=== PATIENT | female | born 1940 | race Caucasian/White ===

== ENCOUNTER → 2020-02-06 09:05 | Outpatient (BNVA) | payer MEDICARE, OTHER, SELFPAY | PROVIDERS: PCP Internal Medicine; Referring Provider Internal Medicine; Visit Provider Internal Medicine Gastroenterology | DX: K21.9 Gastro-esophageal reflux disease without esophagitis (principal); Z79.899 Other long term (current) drug therapy; Z87.19 Personal history of other diseases of the digestive system; Z80.0 Family history of malignant neoplasm of digestive organs | CPT/HCPCS: Q3014 ==

== ENCOUNTER 2021-01-21 | Outpatient (REF) | payer MEDICARE, OTHER, SELFPAY ==
[2021-01-25 07:43] LABS: FIT1 NEGATIVE (NEGATIVE)
[2021-01-25 07:44] LABS: FIT Int Ctl YES; FIT2 NEGATIVE (NEGATIVE)
== END 2021-01-21 00:01 | disposition home or self-care (01) ==
LOC: HO.LNP
PROVIDERS: Visit Provider Internal Medicine Gastroenterology
DX: Z12.11 Encounter for screening for malignant neoplasm of colon (principal)
CPT/HCPCS: 82274

== ENCOUNTER 2021-01-22 07:59 | Outpatient (REF) | payer MEDICARE, OTHER, SELFPAY ==
[2021-01-22 10:07] LABS: MANUAL DIFF FLAG NO
[2021-01-22 10:11] LABS: Basophils Absolute Auto 0.1 X10*3/uL (0.0-0.2); Basophils Percent Auto 1.3 % (0-2); Eosinophils Absolute Auto 0.2 X10*3/uL (0.0-0.4); Eosinophils Percent Auto 3.2 % (0-4); Hematocrit 38.4 % (37.0-47.0); Hemoglobin 12.5 g/dl (12.0-16.0); Imm Gran Abs Auto 0.01 X10*3/uL (0.00-0.03); Imm Gran Pct Auto 0.2 % (0.0-0.4); Lymphocytes Absolute Auto 1.4 X10*3/uL (1.2-4.9); Lymphocytes Percent Auto 26.5 % (20-40); Mean Corpuscular HGB Conc 32.6 g/dl (31.0-35.0); Mean Corpuscular Hemoglobin 29.6 pg (27.0-33.0); Monocytes Absolute Auto 0.6 X10*3/uL (0.1-1.2); Monocytes Percent Auto 11.3 % (2-11); Neutrophils Absolute Auto 3.04 x10*3/uL (2.0-8.3); Neutrophils Percent Auto 57.5 % (45-73); Platelet Count 336 X10*3/uL (160-400); Red Blood Count 4.22 X10*6/uL (4.20-5.50); Red Cell Distribution Width 13.9 % (11.0-16.0); White Blood Count 5.3 X10*3/uL (4.8-10.8)
[2021-01-22 10:33] LABS: Alanine Aminotransferase 19 U/L (0-31); Albumin Level 4.3 g/dL (3.5-5.0); Alkaline Phosphatase 59 U/L (39-117); Anion Gap 12 (12-20); Aspartate Amino Transferase 19 U/L (5-31); Bilirubin Total 0.6 mg/dL (0.0-1.0); Blood Urea Nitrogen 12 mg/dL (9-16); Calcium 9.1 mg/dL (8.4-10.2); Carbon Dioxide 28 mmol/L (22-29); Chloride 105 mmol/L (96-108); Cholesterol 213 mg/dL; Estimated Glomerular Filt Rate > 60; Glucose Fasting 87 mg/dL (60-99); HDL Cholesterol 80 mg/dL; LDL Cholesterol Calculated 117 mg/dl; Potassium 4.6 mmol/L (3.3-5.1); Sodium 140 mmol/L (135-145); Total Protein 6.5 g/dL (6.5-8.0); Triglycerides 82 mg/dL
[2021-01-22 10:59] LABS: Free T4 (Free Thyroxine) 1.01 ng/dL (0.71-1.85)
== END 2021-01-22 08:00 | disposition home or self-care (01) ==
LOC: HO.10HDL 07:59
PROVIDERS: Visit Provider Internal Medicine
DX: I10 Essential (primary) hypertension (principal); E78.00 Pure hypercholesterolemia, unspecified; E03.9 Hypothyroidism, unspecified
CPT/HCPCS: 36415; 80053; 80061; 84439; 84443; 85025

== ENCOUNTER → 2021-04-11 12:18 | Outpatient (BNVA) | payer MEDICARE, OTHER, SELFPAY | PROVIDERS: PCP Internal Medicine; Referring Provider Internal Medicine; Visit Provider Physician Assistant | DX: K21.9 Gastro-esophageal reflux disease without esophagitis (principal); Z80.7 Family history of other malignant neoplasms of lymphoid, hematopoietic and related tissues | CPT/HCPCS: 99212 ==

== ENCOUNTER 2022-01-25 08:11 | Outpatient (REF) | payer MEDICARE, OTHER, SELFPAY ==
--- NOTE | ~2022-01-25 | XR_ITS ---
EXAMINATION: XR ANKLE, RIGHT CLINICAL INFORMATION: Plate COMPARISON: None TECHNIQUE: AP, lateral, and mortise views of the right ankle. FINDINGS: No acute fracture or dislocation. There is old trauma to the distal fibula and plate and screws in the mid and distal fibular shaft. Orthopedic hardware appears intact. No evidence of loosening. 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 The bones are osteopenic. There is mild arthritis at the tibiotalar joint. The ankle mortise is otherwise normal. There are small calcaneal XR/XR ankle RT min 3V IMPRESSION: Old trauma to the distal fibula with plate and screws. 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 Osteopenia.
[2022-01-25 08:50] LABS: MANUAL DIFF FLAG NO
[2022-01-25 09:35] LABS: Basophils Absolute Auto 0.1 X10*3/uL (0.0-0.2); Basophils Percent Auto 1.5 % (0-2); Eosinophils Absolute Auto 0.2 X10*3/uL (0.0-0.4); Eosinophils Percent Auto 3.8 % (0-4); Hematocrit 38.7 % (37.0-47.0); Hemoglobin 12.5 g/dl (12.0-16.0); Imm Gran Abs Auto 0.02 X10*3/uL (0.00-0.03); Imm Gran Pct Auto 0.4 % (0.0-0.4); Lymphocytes Absolute Auto 1.2 X10*3/uL (1.2-4.9); Lymphocytes Percent Auto 25.8 % (20-40); Mean Corpuscular HGB Conc 32.3 g/dl (31.0-35.0); Mean Corpuscular Hemoglobin 29.5 pg (27.0-33.0); Mean Corpuscular Volume 91.3 fL (80.0-98.0); Mean Platelet Volume 9.6 fL (9.4-12.3); Monocytes Absolute Auto 0.5 X10*3/uL (0.1-1.2); Monocytes Percent Auto 11.3 % (2-11); Neutrophils Absolute Auto 2.7 x10*3/uL (2.0-8.3); Neutrophils Percent Auto 57.2 % (45-73); Platelet Count 359 X10*3/uL (160-400); Red Blood Count 4.24 X10*6/uL (4.20-5.50); Red Cell Distribution Width 13.5 % (11.0-16.0); White Blood Count 4.8 X10*3/uL (4.8-10.8)
[2022-01-25 09:50] LABS: Alanine Aminotransferase 16 U/L (0-31); Albumin Level 4.4 g/dL (3.5-5.0); Alkaline Phosphatase 65 U/L (39-117); Anion Gap 16 (12-20); Aspartate Amino Transferase 16 U/L (5-31); Bilirubin Total 0.6 mg/dL (0.0-1.0); Blood Urea Nitrogen 13 mg/dL (9-16); Calcium 9.7 mg/dL (8.4-10.2); Carbon Dioxide 25 mmol/L (22-29); Chloride 103 mmol/L (96-108); Cholesterol 229 mg/dL; Estimated Glomerular Filt Rate > 60; Glucose Fasting 90 mg/dL (60-99); HDL Cholesterol 87 mg/dL; LDL Cholesterol Calculated 121 mg/dl; Potassium 4.9 mmol/L (3.3-5.1); Sodium 139 mmol/L (135-145); Total Protein 6.9 g/dL (6.5-8.0); Triglycerides 108 mg/dL
[2022-01-25 09:59] LABS: Free T4 (Free Thyroxine) 1.04 ng/dL (0.71-1.85); Thyroid Stimulating Hormone 2.29 uIU/mL (0.32-4.0); Vitamin D 25-OH Total 88.8 ng/mL (>30)
== END 2022-01-25 08:12 | disposition home or self-care (01) ==
LOC: HO.LAB 08:11
PROVIDERS: PCP Internal Medicine; Visit Provider Internal Medicine
DX: M25.571 Pain in right ankle and joints of right foot (principal); I10 Essential (primary) hypertension; K21.9 Gastro-esophageal reflux disease without esophagitis; E78.00 Pure hypercholesterolemia, unspecified; E03.9 Hypothyroidism, unspecified
CPT/HCPCS: 36415; 73610; 80053; 80061; 82306; 84439; 84443; 85025

== ENCOUNTER 2022-04-21 10:48 | Outpatient (REF) | payer MEDICARE, OTHER, SELFPAY ==
--- NOTE | 2022-04-29 08:04 | MHC.AU.MED ---
Medical Clearance for Hearing Instrumentation Date: 04/29/22 Patient Name: Jeny León Date of : 1940 Primary Care Provider: Referring Provider: Apolinar Mcelroy MD We have seen your patient on 04/21/22 and have determined that they are a candidate for amplification (See accompanying report). Specifically, they would benefit from: Hearing aid use in both ears There is a statute that addresses Medical Evaluation Requirements prior to fitting a patient with a hearing aid. According to [place] statute 265 CMR:6.03(1), (a) General. Except as provided in 265 CMR 6.03(1)(b), a dermatology nurse practitioner shall not sell a hearing aid unless the prospective user has presented to the dermatology nurse practitioner a written statement signed by a licensed physician that states that the patient's hearing loss has been medically evaluated and the patient may be considered a candidate for a hearing aid. The medical evaluation must have taken place within the preceding six months. Please note: Due to the [place] Statute referenced above, we cannot accept a signature other than that of a licensed physician. CASTING SORTER and PA signatures cannot be accepted. I am in agreement with the above recommendation. There is no medical contraindication for hearing instrumentation. Physician Signature Date Physician Name (Printed)
== END 2022-04-21 10:49 | disposition home or self-care (01) ==
LOC: HO.SH 10:48
PROVIDERS: Visit Provider Internal Medicine
DX: Z01.118 Encounter for examination of ears and hearing with other abnormal findings (principal); H90.3 Sensorineural hearing loss, bilateral
CPT/HCPCS: 92557; 92567; 92700

== ENCOUNTER 2022-06-12 10:31 | Outpatient (REF) | payer MEDICARE, OTHER, SELFPAY ==
--- NOTE | 2022-06-13 07:48 | MHC.AU.HA1 ---
Hearing Aid Evaluation Date of Visit: 06/12/22 Historical Information: Description of Hearing: Normal hearing thresholds 250-1000 Hz dropping to a moderately-severe sensorineural hearing loss bilaterally. Current personal amplification information, if applicable: None Summary: Jeny has been experiencing increased difficulties understanding speech, particularly when in group settings or when background noise is present. Bilateral hearing aids are recommended to better facilitate communication. Demonstrated both Phonak Audeo L 90 and 70 levels in office today. Jeny would like to trial the level 90 aids. She is concerned about moisture as during the summer she is active and swims. Will order the [facility] Hearing Aid Prescription: Based on the individual?s shared listening needs, communication environments, dexterity, desire for connectivity, and personal preferences, the following prescription for amplification has been made: Right ear: Make, Model, Color: Phonak Audeo L 90-RL Silver Almodovar Battery Size: Rechargeable Livestock Haulier/Slim Tube: #1 M Type of Earmold/Dome/CShell/SlimTip: Open Left ear:Left ear prescription to be same as Right Hearing Aid above: Make, Model, Color: Phonak Audeo L 90-RL Silver Almodovar Battery Size: Rechargeable Livestock Haulier/Slim Tube: #1 M Type of Earmold/Dome/CShell/SlimTip: Open Plan of Care: Patient wishes to purchase hearing aids as prescribed Action Taken/Action Needed:Hearing Instrument Fitting to be scheduled when materials arrive Comments: Medical clearance is in chart. Recommended patient contact insurance to see if she has any benefit which may be reimbursed. Primary Diagnosis: H90.3 Bilateral Sensorineural Hearing Loss Signature:Provider: Catherine Tavares, [facility]
== END 2022-06-12 10:32 | disposition home or self-care (01) ==
LOC: HO.HAP 10:31
PROVIDERS: Visit Provider Internal Medicine
DX: Z46.1 Encounter for fitting and adjustment of hearing aid (principal); H90.3 Sensorineural hearing loss, bilateral
CPT/HCPCS: 92590

== ENCOUNTER 2022-07-11 09:54 | Outpatient (REF) | payer MEDICARE, OTHER, SELFPAY ==
--- NOTE | 2022-07-11 10:03 | MHC.AU.NPS ---
PURCHASE AND SALE AGREEMENT Date of Fitting: End of Adjustment Period:30 days from fitting date 21 Dealer: [facility] 3 YR Service Agreement? Opt In: expires? Following the expiration of [facility]?s service agreement, charges for items and services are billed at the usual and customary rate. Payment is due at the time of service. ? (Initialed) Opt out: I understand by opting out of the service agreement I will be charged for any and all hearing aid related services obtained after the adjustment period.? (Initialed) Total Due at Fitting $? Includes any opted in hearing aid service agreement, earmolds and accessories Right Ear: Left Ear: Make, Model, Serial Number and Color: Phonak Audeo L 90-RL Silver Almodovar Make, Model, Serial Number and Color: Phonak Audeo L 90-RL Silver Almodovar Popcorn Attendant/Slim Tube: #1 M Popcorn Attendant/Slim Tube: #1 M Earmold/Dome/CShell/SlimTip: Open Earmold/Dome/CShell/SlimTip: Open Type of Wax Guard: Type of Wax Guard: Battery Size: Rechargeable Battery Size: Rechargeable Bevel Mill Operator Repair Warranty: Bevel Mill Operator Repair Warranty: Bevel Mill Operator Loss and Damage Warranty: Bevel Mill Operator Loss and Damage Warranty: [facility] Service Plan: [facility] Service Plan: Accessories/Assistive Technology: The following items that may be supplied at initial fitting are not included in any warranty or service package: ? Hearing aid batteries ($5), Wax Guard packages ($10) Per [place] regulations, during the 30-day adjustment period, the child development instructor shall be able to cancel the purchase with a limited money back guarantee.? When a child development instructor returns the hearing aid within the adjustment period, the seller shall be entitled to retain the charges for earmolds, services provided to fit the hearing aid; and any repair, remake or adjustment performed that is not contained within any other warranty of sale or service, not to exceed 20% of the purchase mcconnell. ? [facility]?s non-refundable portion of the process, not including earmolds, is the previously paid hearing aid evaluation and selection fee of $350. ? Hearing aids that are lost or damaged beyond repair cannot be returned for credit, and the child development instructor is liable for the full purchase mcconnell. My signature below acknowledges that I have read and understand this hearing aid contract and have received the goods and services out lined above. ?Date? Home Address: ? This hearing aid will not restore normal hearing nor will it prevent further hearing loss. The sale of a hearing aid is restricted to those individuals who have obtained a medical evaluation from a licensed physician or manager mental health. A fully informed adult whose zoroastrian or personal beliefs preclude consultation with a physician may waive the requirement of a medical evaluation. The exercise of such a waiver is not in your best health interest and its use is strongly discouraged. It is also required that a person under the age of eighteen years obtain an evaluation by an journalism intern in addition to the medical evaluation before a hearing aid can be sold to such person. Redd Davis,Title XV,Chapter 93:74 ?Base cost of hearing aid(s) includes the following one-time services during adjustment period: ? Pre-fitting programming ? Electroacoustic check ? Conformity Evaluation ? Hearing aid dispensing ? One adjustment period visit after fitting ? Instruction on use of devices ? Custom modifications to settings, fit ? As needed: Starter battery packs, wax guards, cleaning tools, case ? Pairing devices as needed
== END 2022-07-11 09:55 | disposition home or self-care (01) ==
LOC: HO.HAP 09:54
PROVIDERS: Visit Provider Internal Medicine
DX: Z46.1 Encounter for fitting and adjustment of hearing aid (principal); H90.3 Sensorineural hearing loss, bilateral
CPT/HCPCS: V5262; V5299

== ENCOUNTER 2022-08-05 09:24 | Outpatient (REF) | payer SELFPAY | END 2022-08-05 09:25 | disposition home or self-care (01) | LOC: HO.HAP 09:24 | PROVIDERS: Visit Provider Internal Medicine | DX: Z13.89 Encounter for screening for other disorder (principal) ==

== ENCOUNTER 2022-08-26 09:56 | Outpatient (REF) | payer SELFPAY | END 2022-08-26 09:57 | disposition home or self-care (01) | LOC: HO.HAP 09:56 | PROVIDERS: Visit Provider Internal Medicine | DX: Z13.89 Encounter for screening for other disorder (principal) ==

== ENCOUNTER 2022-08-26 11:43 | Outpatient (REF) | payer MEDICARE, OTHER, SELFPAY ==
--- NOTE | ~2022-08-26 | XR_ITS ---
EXAMINATION: XR RIBS, RIGHT CLINICAL INFORMATION: Status post right side rib pain Right-sided rib pain after fall COMPARISON: Chest 05/02/2009 TECHNIQUE: 3 views of the right ribs were obtained. FINDINGS: Mild opacity at the right lung base most suggestive of atelectasis, less likely pneumonia. No pneumothorax or pleural effusion. Pleural effusion. The cardiomediastinal silhouette and pulmonary vasculature are normal. There is a mildly displaced fracture of the right seventh lateral rib. XR/XR ribs RT min 3V w CXR1V IMPRESSION: Mildly displaced fracture of the right seventh lateral rib.
== END 2022-08-26 11:44 | disposition home or self-care (01) ==
LOC: HO.XRAY 11:43
PROVIDERS: PCP Internal Medicine; Visit Provider Internal Medicine
DX: R07.81 Pleurodynia (principal)
CPT/HCPCS: 71101

== ENCOUNTER 2022-09-15 14:55 | Outpatient (REF) | payer MEDICARE, OTHER, SELFPAY ==
--- NOTE | ~2022-09-15 | XR_ITS ---
EXAMINATION: XR THORACIC SPINE XR LUMBAR SPINE XR SACRUM AND COCCYX CLINICAL INFORMATION: Neck and back pain, fracture of right seventh rib after fall. COMPARISON: Chest 05/02/2009, ribs 08/26/2022. TECHNIQUE: 3 views of the thoracic spine, 4 views of the lumbar spine, 3 views of the sacrum and coccyx. FINDINGS: THORACIC SPINE: The bones are diffusely demineralized. Mild degenerative changes in the thoracic spine. Mild rightward curvature of the mid to upper thoracic spine. Redemonstration of mild superior endplate concavity of a mid to upper thoracic vertebral body, present on 05/02/2009. Degenerative changes on very limited imaging of the cervical spine. LUMBAR SPINE: The bones are diffusely demineralized. Mild rightward curvature of the thoracolumbar junction. Facet arthritis in the mid to lower lumbar spine. Advanced multilevel degenerative changes in the lumbar spine with multilevel loss of disc space height, subchondral sclerosis and vacuum phenomenon most notable at L4-L5, and L5-S1. Atherosclerotic aortoiliac calcifications. SACRUM/COCCYX: The bones are diffusely demineralized. Multiple dense, amorphous calcifications in the central pelvis, possibly related to vascularity, fibroids and/or nodes or other etiology. Moderate degenerative changes bilateral sacroiliac joints. Visualization limited due to overlying bowel. XR/XR sacrum coccyx min 2V IMPRESSION: 1. Mild degenerative changes in the thoracic spine. 2. Severe multilevel degenerative changes in the lumbar spine most notable at L4-L5 and L5-S1. 3. Moderate degenerative changes bilateral sacroiliac joints. 4. Multiple dense, amorphous calcifications in the central pelvis, possibly related to vascularity, fibroids and/or nodes or other etiology. Additional imaging with CT scan or MRI should be considered for better visualization as these modalities are much more sensitive for detection of fracture or other underlying pathology. Images were presented today 10/01/2022 at 12:30 PM for interpretation.
--- NOTE | ~2022-09-15 | XR_ITS ---
EXAMINATION: XR THORACIC SPINE XR LUMBAR SPINE XR SACRUM AND COCCYX CLINICAL INFORMATION: Neck and back pain, fracture of right seventh rib after fall. COMPARISON: Chest 05/02/2009, ribs 08/26/2022. TECHNIQUE: 3 views of the thoracic spine, 4 views of the lumbar spine, 3 views of the sacrum and coccyx. FINDINGS: THORACIC SPINE: The bones are diffusely demineralized. Mild degenerative changes in the thoracic spine. Mild rightward curvature of the mid to upper thoracic spine. Redemonstration of mild superior endplate concavity of a mid to upper thoracic vertebral body, present on 05/02/2009. Degenerative changes on very limited imaging of the cervical spine. LUMBAR SPINE: The bones are diffusely demineralized. Mild rightward curvature of the thoracolumbar junction. Facet arthritis in the mid to lower lumbar spine. Advanced multilevel degenerative changes in the lumbar spine with multilevel loss of disc space height, subchondral sclerosis and vacuum phenomenon most notable at L4-L5, and L5-S1. Atherosclerotic aortoiliac calcifications. SACRUM/COCCYX: The bones are diffusely demineralized. Multiple dense, amorphous calcifications in the central pelvis, possibly related to vascularity, fibroids and/or nodes or other etiology. Moderate degenerative changes bilateral sacroiliac joints. Visualization limited due to overlying bowel. XR/XR thoracic spine 3V IMPRESSION: 1. Mild degenerative changes in the thoracic spine. 2. Severe multilevel degenerative changes in the lumbar spine most notable at L4-L5 and L5-S1. 3. Moderate degenerative changes bilateral sacroiliac joints. 4. Multiple dense, amorphous calcifications in the central pelvis, possibly related to vascularity, fibroids and/or nodes or other etiology. Additional imaging with CT scan or MRI should be considered for better visualization as these modalities are much more sensitive for detection of fracture or other underlying pathology. Images were presented today 10/01/2022 at 12:30 PM for interpretation.
--- NOTE | ~2022-09-15 | XR_ITS ---
EXAMINATION: XR THORACIC SPINE XR LUMBAR SPINE XR SACRUM AND COCCYX CLINICAL INFORMATION: Neck and back pain, fracture of right seventh rib after fall. COMPARISON: Chest 05/02/2009, ribs 08/26/2022. TECHNIQUE: 3 views of the thoracic spine, 4 views of the lumbar spine, 3 views of the sacrum and coccyx. FINDINGS: THORACIC SPINE: The bones are diffusely demineralized. Mild degenerative changes in the thoracic spine. Mild rightward curvature of the mid to upper thoracic spine. Redemonstration of mild superior endplate concavity of a mid to upper thoracic vertebral body, present on 05/02/2009. Degenerative changes on very limited imaging of the cervical spine. LUMBAR SPINE: The bones are diffusely demineralized. Mild rightward curvature of the thoracolumbar junction. Facet arthritis in the mid to lower lumbar spine. Advanced multilevel degenerative changes in the lumbar spine with multilevel loss of disc space height, subchondral sclerosis and vacuum phenomenon most notable at L4-L5, and L5-S1. Atherosclerotic aortoiliac calcifications. SACRUM/COCCYX: The bones are diffusely demineralized. Multiple dense, amorphous calcifications in the central pelvis, possibly related to vascularity, fibroids and/or nodes or other etiology. Moderate degenerative changes bilateral sacroiliac joints. Visualization limited due to overlying bowel. XR/XR lumbar spine 2-3V IMPRESSION: 1. Mild degenerative changes in the thoracic spine. 2. Severe multilevel degenerative changes in the lumbar spine most notable at L4-L5 and L5-S1. 3. Moderate degenerative changes bilateral sacroiliac joints. 4. Multiple dense, amorphous calcifications in the central pelvis, possibly related to vascularity, fibroids and/or nodes or other etiology. Additional imaging with CT scan or MRI should be considered for better visualization as these modalities are much more sensitive for detection of fracture or other underlying pathology. Images were presented today 10/01/2022 at 12:30 PM for interpretation.
== END 2022-09-15 14:56 | disposition home or self-care (01) ==
LOC: HO.XRAY 14:55
PROVIDERS: PCP Internal Medicine; Visit Provider Nurse Practitioner Family
DX: M47.816 Spondylosis without myelopathy or radiculopathy, lumbar region (principal); M53.3 Sacrococcygeal disorders, not elsewhere classified; S22.31XA Fracture of one rib, right side, initial encounter for closed fracture; X58.XXXA Exposure to other specified factors, initial encounter; Y93.9 Activity, unspecified; Y92.9 Unspecified place or not applicable; Y99.9 Unspecified external cause status; Z91.81 History of falling
CPT/HCPCS: 72072; 72100; 72220; 99202

== ENCOUNTER 2022-09-18 09:08 | Outpatient (REF) | payer SELFPAY ==
--- NOTE | 2022-09-18 10:46 | MHC.AU.HA3 ---
Hearing Instrument Follow-Up- Binaural Date of Visit: 09/18/22 Right Ear: Tee Model, Color, Serial Number: Vish Mosquera 90-RL Alonzo Almodovar #[id number] Carpenter And Joiner Repair Warranty: 09/09/2025 Carpenter And Joiner Loss and Damage Warranty: 09/09/2025 [facility] Service Plan: NONE Battery Size: Rechargeable Medical Delivery Driver/Slim Tube: #1 M Earmold/Dome/CShell/SlimTip:Small open dome Type of Wax Guard: CeruShield Dispensed By: [facility] Date of Fittin07/11/2022 Left Ear: Tee Model, Color, Serial Number: Vish Mosquera 90-RL Alonzo Almodovar #[id number] Carpenter And Joiner Repair Warranty: 09/09/2025 Carpenter And Joiner Loss and Damage Warranty: 09/09/2025 [facility] Service Plan: NONE Battery Size: Rechargeable Medical Delivery Driver/Slim Tube: #1 M Earmold/Dome/CShell/SlimTip: Small Open Dome Type of Wax Guard: CeruShield Dispensed By: [facility] Date of Fittin07/11/2022 Follow-Up Summary: Jeny reported that recently the sound quality has been too harsh and she has been on edge when wearing the hearing aids. She continually needs to decrease the volume to be more comfortable. Auto acclimatization at 99% (started at 80% in June 2022 at initial fit) which may account for the noticeable change in sound quality. Decreased gain level to 85% with auto increase to 90% in 14 days. Jeny noted significant improvement in sound quality in office. Discussed the trade off between comfort and audibility as Jeny reported minimal perceived benefit from the hearing aids. However, she did report that her daughter notices a difference in her understanding and responsiveness when she is wearing the hearing aids. R/S follow up on 10/01/22. Jeny knows she needs to make a decision regarding confirming the purchase of the hearing aids or RFC at that time. Recommendations: An additional follow-up was scheduled to monitor progress. Diagnosis Code(s): Primary Diagnosis: H90.3 Bilateral Sensorineural Hearing Loss Signature: Provider: Catherine Soliz, [facility]
== END 2022-09-18 09:09 | disposition home or self-care (01) ==
LOC: HO.HAP 09:08
PROVIDERS: Visit Provider Internal Medicine
DX: Z13.89 Encounter for screening for other disorder (principal)

== ENCOUNTER 2022-09-24 09:40 | Outpatient (REF) | payer MEDICARE, OTHER, SELFPAY ==
--- NOTE | ~2022-09-24 | MM_ITS ---
EXAMINATION: BONE DENSITOMETRY CLINICAL INDICATION: Asymptomatic menopausal state. COMPARISON: Previous BD dated 10/06/2017 and baseline BD dated 04/10/2005. TECHNIQUE: Using a Bi02 Medical DXA System (software version: 13.1) manufactured by [employer], dual-energy x-ray absorptiometry was performed of the lumbar spine and left hip. The images are of good technical quality. Summary results are attached. FINDINGS: LEFT FEMUR, NECK: Current: BMD 0.705 g/cm2, Z-score -0.3, T-score -2.4, osteopenia. Prior: BMD 0.716 g/cm2. Baseline: BMD 0.726 g/cm2. LEFT FEMUR, TOTAL: Current: BMD 0.789 g/cm2, Z-score 0.2, T-score -1.7, osteopenia, 0.8% decrease from previous, 3.2% decrease from baseline (<5% change is not significant). Prior: BMD 0.795 g/cm2. Baseline: BMD 0.815 g/cm2. AP SPINE L1-L4: Current: BMD 1.051 g/cm2, Z-score 0.7, T-score -1.1, osteopenia, 1.6% increase from previous, 12.3% increase from baseline (<5% change is not significant). Prior: BMD 1.034 g/cm2. Baseline: BMD 0.936 g/cm2. IDENTIFIED RISK FACTORS: History of fracture (adult), low calcium intake, menopause. HISTORY OF FRACTURE: Other. MEDICATIONS: Vitamin D. MM/XR DEXA axial skeleton IMPRESSION: 1. DIAGNOSIS: Osteopenia based on the lowest T-score value of -2.4 in the femoral neck applying World Health Organization criteria. 2. 10-YEAR FRACTURE RISK PREDICTION, FRAX: Major osteoporotic fracture (clinical spine, forearm, hip or shoulder) 25.7%. Hip fracture 8.1%. 3. Treatment Recommendations: NOF guidelines recommend consideration for treatment in postmenopausal women and men age 50 and older presenting with the following: -A hip or vertebral (clinical or morphometric) fracture. -T-score less than or equal to -2.5 at the femoral neck or spine after appropriate evaluation to exclude secondary causes. -Low bone mass at the hip or spine and a 10-year fracture probability by FRAX of greater than or equal to 3% for hip fracture or greater than or equal to 20% for major osteoporotic fracture based on the [place] adapted WHO algorithm. 4. Other Recommendations: All treatment decisions require clinical judgment and consideration of individual patient factors, including patient preferences, comorbidities, previous drug use, risk factors not captured in the FRAX model (e.g. frailty, falls, vitamin D deficiency, increased bone turnover, interval significant decline in bone density) and possible under or overestimation of fracture risk by FRAX. Additional medical evaluation for secondary cause of low bone mineral density may be appropriate. FUTURE SCAN RECOMMENDATION: People with diagnosed cases of osteoporosis or at high risk for fracture should have regular bone mineral density tests. For patients eligible for Medicare, routine testing is allowed once every 2 years. The testing frequency can be increased to one year for patients who have rapidly progressing disease, those who are receiving or discontinuing medical therapy to restore bone mass, or have additional risk factors.
== END 2022-09-24 09:41 | disposition home or self-care (01) ==
LOC: HO.MAMMO 09:40
PROVIDERS: Visit Provider Internal Medicine
DX: Z13.820 Encounter for screening for osteoporosis (principal); Z78.0 Asymptomatic menopausal state
CPT/HCPCS: 77080

== ENCOUNTER 2022-10-01 12:17 | Outpatient (REF) | payer SELFPAY ==
--- NOTE | 2022-10-01 13:37 | MHC.AU.HA3 ---
Hearing Instrument Follow-Up- Binaural Date of Visit: 10/01/22 Right Ear: Model Tee, Color, Serial Number: Vish Mosquera 90-RL Alonzo Almodovar #[id number] Electronic Warfare Specialist Repair Warranty: 09/09/2025 Electronic Warfare Specialist Loss and Damage Warranty: 09/09/2025 [facility] Service Plan: OPTED OUT Battery Size: Rechargeable Level Vial Setter/Slim Tube: #1 M Earmold/Dome/CShell/SlimTip:Small open dome Type of Wax Guard: CeruShield Dispensed By: [facility] Date of Fittin07/11/2022 Left Ear: Model Tee, Color, Serial Number: Vish Mosquera 90-RL Alonzo Almodovar #[id number] Electronic Warfare Specialist Repair Warranty: 09/09/2025 Electronic Warfare Specialist Loss and Damage Warranty: 09/09/2025 [facility] Service Plan: OPTED OUT Battery Size: Rechargeable Level Vial Setter/Slim Tube: #1 M Earmold/Dome/CShell/SlimTip: Small Open Dome Type of Wax Guard: CeruShield Dispensed By: [facility] Date of Fittin07/11/2022 Follow-Up Summary: Jeny reported that the past 2-3 days the harshness of sound quality returned. At her previous appointment, gain level set to 85% with auto increase to 90% in 14 days. Gain level today was 89%. Decreased back down to 80% at Jeny's request with significant improvement noted in sound quality. Did not turn auto acclimatization back on. Will keep programming at 80% gain level until Jeny feels as though she is ready for an increase in amplification. Again discussed tradeoff between audibility and comfort. Performed aided (at 80% gain level) vs. unaided soundfield speech testing as Jeny was still unsure of perceived benefit. Speech testing (recorded NU-6, list 2) at 40 dB HL: Aided - 92% vs. Unaided - 76%. Pattern of errors for unaided included high frequency speech sounds (e.g., hut for hush, lid for live, sapp for rot, etc). Jeny even noticed an ease of understanding with the hearing aids compared to without the hearing aids during soundfield testing. Jeny confirmed the purchase of the hearing aids marking the end of the trial period. Recommendations: Hearing instrument follow-up or maintenance as needed. Please contact our clinic with any questions or concerns. Diagnosis Code(s): Primary Diagnosis: H90.3 Bilateral Sensorineural Hearing Loss Signature: Provider: Catherine Soliz, [facility]
== END 2022-10-01 12:18 | disposition home or self-care (01) ==
LOC: HO.HAP 12:17
PROVIDERS: Visit Provider Internal Medicine
DX: Z13.89 Encounter for screening for other disorder (principal)

== ENCOUNTER 2022-10-20 09:25 | Outpatient (AMB) | payer MEDICARE, OTHER, SELFPAY ==
[2022-10-20 09:28] VITALS: BP 183/86; PULSE 73; O2SAT 96; BMI 28.4
--- NOTE | 2022-10-20 09:28 | MHC.OFFVIS ---
Intake Vital Signs 10/20/22 09:28 Height 5 ft 1 in Weight 150 lb 4 oz BMI 28.4 BP 183/86 H Blood Pressure Location Rt brachial Position Sitting Pulse 73 Pulse Source Pulse Oximeter Pulse Oximetry (%) 96 Oxygen Delivery Method Room Air Intake Visit Reasons: xray results Allergies No Known Allergies [No Known Allergies*] Allergy (Unverified 10/20/22 09:31) HPI HPI Comments History of Present Illness Details Patient presents today to review recent xray results and follow up. Currently reports no pain in previously mentioned pain generators, except occasional bilateral knee pain with walking or climbing stairs. Denies any recent trauma, injury or falls. Patient denies any recent cough, cold, infection, fever or other significant changes in medical history since last office visit. Patient denies any bladder or bowel incontinence or saddle anesthesia. Patient also reports undergoing bone density scan recently and started taking vitamin D with calcium per her PCP. PRIOR: Patient is a pleasant 81 years old female presents today with back and right rib pain due to a fall 3 weeks ago. Patient reports she fell on stairs while putting her shoes on and fell backwards on her coccyx which also is tender and her back hit the wall and felt immediate stabbing pain in her mid back. Patient reports initially her right sided mid back pain was radiating to her abdomen. She describes her pain as intermittent dull, sore, hurting, aching and heavy. Pain increases with movements and lying down and relieves with sitting up. She was prescribed tramadol by her PCP and states this has been helpful for her. Her pain level is 2/10 at this time but by nighttime can increase to 5-7/10. Rib x-ray showed a mildly displaced fracture of the right seventh lateral rib. Patient reports she continues to stay active despite the pain, including pain in her mid to lower back and coccyx, and cannot wait to return to play golf. No acute distress or discomfort noted during prolonged sitting on chair or exam table today. Denies any fever, weight loss, shortness of breath, chest pain, swelling, rash, dyspnea, gait disturbance, weakness, numbness or tingling, bladder or bowel incontinence or saddle anesthesia. [facility] Medical History (Updated 10/20/22 @ 13:15 by SILVANO Engle) Family hx of colon cancer requiring screening colonoscopy GERD (gastroesophageal reflux disease) Surgical History History of esophagogastroduodenoscopy (EGD) Hx of colonoscopy Family History Father No problems noted. Mother No problems noted. Sister No problems noted. Social History Household Members: None Housing: House Alcohol intake: current Alcohol intake frequency: 0-2 drinks per day Alcohol type: beer and wine Patient Tobacco Use Status: Former Tobacco user Current occupational status: retired Review of Systems Const All systems reviewed & are unremarkable except as noted in HPI and below Physical Exam Vital Signs: Last Vital Signs Pulse 73 10/20/22 09:28 BP 183/86 H 10/20/22 09:28 Pulse Ox 96 10/20/22 09:28 Oxygen Delivery Method Room Air 10/20/22 09:28 BMI result Body Mass Index 28.4 General: Appears afebrile. Alert and oriented. Mood and affect appropriate. Follows and participates in conversation appropriately. Respiratory effort is unlabored. No cough. Able to transition from sit to stand unassisted. Ambulates with bilaterally normal heel strike and toe off. Extrem General: Yes capillary refill normal, Yes no clubbing, cyanosis or edema and Yes no calf tenderness Right lower extremity: knee (Anterior mild knee pain with flexion or bending.) Details: normal to inspection, normal ROM and crepitus; no swelling, no ecchymosis and no unusual warmth Left lower extremity: knee (Anterior mild knee pain with flexion or bending. Limited ROM.) Details: normal to inspection and crepitus; no swelling, no ecchymosis and no unusual warmth Results Reviewed Results Reviewed: XR THORACIC SPINE XR LUMBAR SPINE XR SACRUM AND COCCYX 09/15/22 CLINICAL INFORMATION: Neck and back pain, fracture of right seventh rib after fall. COMPARISON: Chest 05/02/2009, ribs 08/26/2022. TECHNIQUE: 3 views of the thoracic spine, 4 views of the lumbar spine, 3 views of the sacrum and coccyx. FINDINGS: THORACIC SPINE: The bones are diffusely demineralized. Mild degenerative changes in the thoracic spine. Mild rightward curvature of the mid to upper thoracic spine. Redemonstration of mild superior endplate concavity of a mid to upper thoracic vertebral body, present on 05/02/2009. Degenerative changes on very limited imaging of the cervical spine. LUMBAR SPINE: The bones are diffusely demineralized. Mild rightward curvature of the thoracolumbar junction. Facet arthritis in the mid to lower lumbar spine. Advanced multilevel degenerative changes in the lumbar spine with multilevel loss of disc space height, subchondral sclerosis and vacuum phenomenon most notable at L4-L5, and L5-S1. Atherosclerotic aortoiliac calcifications. SACRUM/COCCYX: The bones are diffusely demineralized. Multiple dense, amorphous calcifications in the central pelvis, possibly related to vascularity, fibroids and/or nodes or other etiology. Moderate degenerative changes bilateral sacroiliac joints. Visualization limited due to overlying bowel. IMPRESSION: 1. Mild degenerative changes in the thoracic spine. 2. Severe multilevel degenerative changes in the lumbar spine most notable at L4-L5 and L5-S1. 3. Moderate degenerative changes bilateral sacroiliac joints. 4. Multiple dense, amorphous calcifications in the central pelvis, possibly related to vascularity, fibroids and/or nodes or other etiology. Additional imaging with CT scan or MRI should be considered for better visualization as these modalities are much more sensitive for detection of fracture or other underlying pathology. BONE DENSITOMETRY 09/24/22 FINDINGS: LEFT FEMUR, NECK: Current: BMD 0.705 g/cm2, Z-score -0.3, T-score -2.4, osteopenia. Prior: BMD 0.716 g/cm2. Baseline: BMD 0.726 g/cm2. LEFT FEMUR, TOTAL: Current: BMD 0.789 g/cm2, Z-score 0.2, T-score -1.7, osteopenia, 0.8% decrease from previous, 3.2% decrease from baseline (<5% change is not significant). Prior: BMD 0.795 g/cm2. Baseline: BMD 0.815 g/cm2. AP SPINE L1-L4: Current: BMD 1.051 g/cm2, Z-score 0.7, T-score -1.1, osteopenia, 1.6% increase from previous, 12.3% increase from baseline (<5% change is not significant). Prior: BMD 1.034 g/cm2. Baseline: BMD 0.936 g/cm2. IDENTIFIED RISK FACTORS: History of fracture (adult), low calcium intake, menopause. HISTORY OF FRACTURE: Other. MEDICATIONS: Vitamin D. IMPRESSION: 1. DIAGNOSIS: Osteopenia based on the lowest T-score value of -2.4 in the femoral neck applying World Health Organization criteria. Assessment & Plan Assessment & Plan (1) Lumbar spondylosis: Code(s): M47.816 - Spondylosis without myelopathy or radiculopathy, lumbar region (2) Bilateral knee pain: Code(s): M25.561 - Pain in right knee; M25.562 - Pain in left knee (3) SI joint arthritis: Code(s): M47.818 - Spondylosis without myelopathy or radiculopathy, sacral and sacrococcygeal region (4) Osteopenia: Code(s): M85.80 - Other specified disorders of bone density and structure, unspecified site (5) Lumbar degenerative disc disease: Code(s): M51.36 - Other intervertebral disc degeneration, lumbar region Plan Recent results for thoracic and lumbar spine as well as sacrum and coccyx were reviewed with patient today. She denies any significant pain in these areas today and reports mild to moderate bilateral knee pain with walking or climbing stairts. We briefly discussed diagnostic nerve blocks for potential Sprint PNS trial for knee pain. Informational booklets provided to patient. She will notify our office if interested in interventional treatments. Results for bone density noted for osteopenia based on the lowest T-score value of -2.4 in the left femoral neck. Patient has started vitamin D with calcium supplement per her PCP. All questions were answered and patient agreed with the plan. Follow up as needed. Coding Level of Care Code Est Pt Level 3 (60447) Diagnoses Lumbar spondylosis M47.816 Bilateral knee pain M25.561; M25.562 SI joint arthritis M47.818 Osteopenia M85.80 Lumbar degenerative disc disease M51.36
== END 2022-10-20 10:15 | disposition home or self-care (01) ==
PROVIDERS: PCP Internal Medicine; Visit Provider Nurse Practitioner Family
DX: M47.816 Spondylosis without myelopathy or radiculopathy, lumbar region (principal); M25.561 Pain in right knee; M25.562 Pain in left knee; M47.818 Spondylosis without myelopathy or radiculopathy, sacral and sacrococcygeal region; M85.80 Other specified disorders of bone density and structure, unspecified site; M51.36 Other intervertebral disc degeneration, lumbar region
CPT/HCPCS: 99213

== ENCOUNTER → 2022-10-20 09:25 | Outpatient (BNVA) | payer MEDICARE, OTHER, SELFPAY | PROVIDERS: PCP Internal Medicine; Visit Provider Nurse Practitioner Family | DX: M85.80 Other specified disorders of bone density and structure, unspecified site (principal); M47.816 Spondylosis without myelopathy or radiculopathy, lumbar region; M47.818 Spondylosis without myelopathy or radiculopathy, sacral and sacrococcygeal region; M25.561 Pain in right knee; M25.562 Pain in left knee; M51.36 Other intervertebral disc degeneration, lumbar region | CPT/HCPCS: 99212 ==

== ENCOUNTER 2023-03-05 12:53 | Outpatient (REF) | payer MEDICARE, OTHER, SELFPAY ==
--- NOTE | ~2023-03-05 | XR_ITS ---
EXAMINATION: XR HIP, LEFT CLINICAL INFORMATION: Left hip pain COMPARISON: None available. TECHNIQUE: Two views of the left hip. FINDINGS: Mild narrowing along the superior acetabular rim with small marginal osteophytes. No fracture or malalignment. No suspicious bone lesion. XR/XR hip LT min 2V IMPRESSION: Mild left hip osteoarthritis.
== END 2023-03-05 12:54 | disposition home or self-care (01) ==
LOC: HO.XRAY 12:53
PROVIDERS: PCP Internal Medicine; Visit Provider Internal Medicine
DX: M25.552 Pain in left hip (principal)
CPT/HCPCS: 73502

== ENCOUNTER 2023-03-19 11:03 | Outpatient (REF) | payer MEDICARE, OTHER, SELFPAY ==
[2023-03-19 11:20] LABS: MANUAL DIFF FLAG NO
[2023-03-19 11:37] LABS: Basophils Absolute Auto 0.1 X10*3/uL (0.0-0.2); Basophils Percent Auto 1.2 % (0-2); Eosinophils Absolute Auto 0.1 X10*3/uL (0.0-0.4); Eosinophils Percent Auto 2.4 % (0-4); Hematocrit 39.2 % (37.0-47.0); Hemoglobin 12.8 g/dl (12.0-16.0); Imm Gran Abs Auto 0.01 X10*3/uL (0.00-0.03); Imm Gran Pct Auto 0.2 % (0.0-0.4); Lymphocytes Absolute Auto 1.1 X10*3/uL (1.2-4.9); Lymphocytes Percent Auto 22.2 % (20-40); Mean Corpuscular HGB Conc 32.7 g/dl (31.0-35.0); Mean Corpuscular Hemoglobin 29.4 pg (27.0-33.0); Mean Corpuscular Volume 89.9 fL (80.0-98.0); Mean Platelet Volume 9.5 fL (9.4-12.3); Monocytes Absolute Auto 0.6 X10*3/uL (0.1-1.2); Monocytes Percent Auto 11.5 % (2-11); Neutrophils Absolute Auto 3.2 x10*3/uL (2.0-8.3); Neutrophils Percent Auto 62.5 % (45-73); Platelet Count 346 X10*3/uL (160-400); Red Blood Count 4.36 X10*6/uL (4.20-5.50); Red Cell Distribution Width 13.9 % (11.0-16.0)
[2023-03-19 12:36] LABS: Appearance Urine Cloudy; Color Urine Yellow; Glucose Urine UA Negative (Negative); Leukocyte Esterase Urine Small (1+) (Negative); Nitrite Urine Negative (Negative); PH 7.5 (5.0-9.0); Specific Gravity - Urine 1.015 (1.005-1.025); UMIC TRIGGER UA YES; Urine Blood Negative (Negative); Urine Ketones Negative (Negative); Urine Protein Negative (Neg-Trace)
[2023-03-19 12:37] LABS: Anion Gap 10 (12-20); Blood Urea Nitrogen 14 mg/dL (9-16); Calcium 9.4 mg/dL (8.4-10.2); Carbon Dioxide 30 mmol/L (22-29); Chloride 103 mmol/L (96-108); Estimated Glomerular Filt Rate > 60; Glucose Random 96 mg/dL (60-115); Sodium 139 mmol/L (135-145)
[2023-03-19 12:45] LABS: Bacteria Urine Trace (None Seen); WBC Urine 0-5 /HPF (0-5)
== END 2023-03-19 11:04 | disposition home or self-care (01) ==
LOC: HO.LAB 11:03
PROVIDERS: PCP Internal Medicine; Visit Provider Urology
DX: D41.4 Neoplasm of uncertain behavior of bladder (principal); N39.0 Urinary tract infection, site not specified
CPT/HCPCS: 36415; 80048; 81001; 85025; 87086

== ENCOUNTER 2023-04-02 13:05 | Emergency (ER) | payer MEDICARE, OTHER, SELFPAY ==
[2023-04-02 13:21] VITALS: BP 213/100; PULSE 78; RESP 18; TEMP 36.6; O2SAT 95; BMI 28.7
--- NOTE | 2023-04-02 13:21 | ED_ITS ---
HPI - General Adult General Chief complaint: General Medical Stated complaint: high bp Time Seen by Provider: 04/02/23 14:25 Related Data Home Medications Medication Instructions Recorded Confirmed cholecalciferol (vitamin D3) 50 50 mcg PO DAILY 02/06/20 04/05/23 mcg (2,000 unit) capsule conjugated estrogens 0.625 mg/gram 0.625 mg vaginal MOWEFR@0900 02/06/20 04/05/23 vaginal cream (Premarin) levothyroxine 25 mcg tablet 25 mcg PO DAILY@0600 02/06/20 04/05/23 (Synthroid) lisinopril 10 mg tablet 20 mg PO DAILY 02/06/20 04/05/23 lutein 40 mg capsule 40 mg PO DAILY 02/06/20 04/05/23 pravastatin 80 mg tablet 80 mg PO DAILY 02/06/20 04/05/23 tumeric 100 mg-jaguar 150 mg-olive 1 cap PO DAILY 04/11/21 04/05/23 50 mg-oreg 150 mg-caprylate capsule calcium carb-Ca gluc 500 mg 1 tab PO DAILY 04/05/23 04/05/23 calcium-magnesium ox-Mg gluc 250 mg tablet (Calcium Magnesium) omeprazole 20 mg capsule,delayed 20 mg PO DAILY@0630 04/05/23 04/05/23 release Previous Rx's Medication Instructions Recorded amlodipine 5 mg tablet 5 mg PO DAILY #14 tabs 04/02/23 aspirin 81 mg tablet,delayed 81 mg PO DAILY #30 tabs 04/06/23 release folic acid 1 mg tablet 1 mg PO DAILY #30 tabs 04/06/23 pravastatin 80 mg tablet 80 mg PO DAILY #30 tabs 04/06/23 thiamine mononitrate (vit B1) 100 100 mg PO DAILY #30 tabs 04/06/23 mg tablet Allergies Allergy/AdvReac Type Severity Reaction Status Date / Time No Known Allergies Allergy Verified 04/02/23 13:20 [No Known Allergies*] [facility] Past Medical History Onset Date is defined in the Problem List Problems that require an onset date and time if occurred within 24 hrs of arrival to the ED Aortic Dissection and Rupture; Neurologic impairment; Cardiopulmonary Arrest; Endotracheal Intubation; Insertion or Replacement of Mechanical Circulatory Assist Device Medical History Family hx of colon cancer requiring screening colonoscopy GERD (gastroesophageal reflux disease) Surgical History History of esophagogastroduodenoscopy (EGD) Hx of colonoscopy Family History Family History Father No problems noted. Mother No problems noted. Sister No problems noted. Social History Social History Household Members: None Housing: House Alcohol intake: current Alcohol intake frequency: 0-2 drinks per day Alcohol type: beer and wine Patient Tobacco Use Status: Former Tobacco user Quit Date: 25-30 yrs ago Tobacco use type: Cigarette service: No Current occupational status: retired Physical Exam ED Vital Signs: Vital Signs - 24 hr 04/02/23 13:21 04/02/23 14:40 Temperature 98 F Pulse Rate 78 80 Respiratory Rate 18 20 Blood Pressure 213/100 H 178/92 H Pulse Oximetry 95 97 Oxygen Delivery Method Room Air Room Air BMI result Body Mass Index 28.7 Course Course Course Narrative: Was at the [facility] earlier today for a 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 She was given several doses of labetalol without improvement. Did not take her labetalol today as she was told to hold the medication. Also reporting a headache, 04/01, but states she has been fasting for the procedure. Denies CP, SOB, fever, chills RME: NAD, A&Ox4, MAEx4 with good strength, PERRLA, LS CTA, HR RRR RME completed by Rosalba Reevaluation(s) Reevaluation #1: 82-year-old female came in for high blood pressure patient only taking lisinopril, good response to amlodipine will add 5 mg tablet amlodipine and have the patient follow-up with Dr. Mcelroy. Time: 15:39 Medications Administered Discontinued Medications Generic Name Dose Route Start Last Admin Trade Name Freq PRN Reason Stop Dose Admin Amlodipine Besylate 5 mg 04/02/23 14:36 04/02/23 14:40 Amlodipine Besylate 5 Mg Tablet PO 04/02/23 14:37 5 mg ONCE ONE Administration Protocol Medical Decision Making Differential Diagnosis Differential Diagnoses: The differential diagnosis associated with the presentation includes ( ACS, CHF, electrolyte abnormality, severe anemia, hypertensive emergency.) Admission/Observation Consideration of admission/observation: Escalation of care including admission/observation considered Lab Data MDM Lab Attestation statement: I reviewed the patient's lab results. 04/02/23 13:56 04/02/23 13:56 Labs: Lab Results 04/02/23 Range/Units 13:56 WBC 5.9 (4.8-10.8) X10*3/uL RBC 4.50 (4.20-5.50) X10*6/uL Hgb 13.2 (12.0-16.0) g/dl Hct 40.9 (37.0-47.0) % MCV 90.9 (80.0-98.0) fL MCH 29.3 (27.0-33.0) pg MCHC 32.3 (31.0-35.0) g/dl RDW 13.7 (11.0-16.0) % Plt Count 324 (160-400) X10*3/uL MPV 9.6 (9.4-12.3) fL Immature Gran % (Auto) 0.3 (0.0-0.4) % Neut % (Auto) 73.7 H (45-73) % Lymph % (Auto) 16.4 L (20-40) % Pender % (Auto) 7.8 (2-11) % Eos % (Auto) 1.0 (0-4) % Baso % (Auto) 0.8 (0-2) % Lymph # (Auto) 1.0 L (1.2-4.9) X10*3/uL Pender # (Auto) 0.5 (0.1-1.2) X10*3/uL Eos # (Auto) 0.1 (0.0-0.4) X10*3/uL Baso # (Auto) 0.1 (0.0-0.2) X10*3/uL Abs Immat Gran (auto) 0.02 (0.00-0.03) X10*3/uL Absolute Neuts (auto) 4.4 (2.0-8.3) x10*3/uL Absolute Nucleated RBC 0.000 (0.0-0.012) X10*3/uL Nucleated RBC % (auto) 0.0 (0.0-0.2) /100WBC Sodium 143 (135-145) mmol/L Potassium 3.7 (3.3-5.1) mmol/L Chloride 107 (96-108) mmol/L Carbon Dioxide 29 (22-29) mmol/L Anion Gap 11 L (12-20) BUN 9 (9-16) mg/dL Creatinine 0.67 (0.5-1.4) mg/dL Estim Creat Clear Calc 58.5 Estimated GFR > 60 Random Glucose 96 (60-115) mg/dL Calcium 9.5 (8.4-10.2) mg/dL Total Bilirubin 0.4 (0.0-1.0) mg/dL AST 17 (5-31) U/L ALT 16 (0-31) U/L Alkaline Phosphatase 73 (39-117) U/L Troponin I High Sens < 2.7 (<3.5-17.0) ng/L Total Protein 7.3 (6.5-8.0) g/dL Albumin 4.4 (3.5-5.0) g/dL Independent Interpretation I performed an independent interpretation of an: EKG ( Normal sinus rhythm at 69 beats per minutes with PVCs, normal intervals, no significant EKG change from prior EKG.) Chronic Conditions Patient?s care impacted by: Hypertension Discharge Plan Discharge Clinical Impression: Essential hypertension Patient Disposition: Home, Self-Care Instructions: Hypertension (ED) Prescriptions: New amlodipine 5 mg tablet 5 mg PO DAILY Qty: 14 0RF No Action omeprazole 20 mg capsule,delayed release(DR/EC) 20 mg PO DAILY@0630 Calcium Magnesium 500 mg calcium -250 mg Tablet 1 tab PO DAILY aspirin 81 mg Tablet,Delayed Release (Dr/Ec) 81 mg PO DAILY Qty: 30 0RF pravastatin 80 mg Tablet 80 mg PO DAILY Qty: 30 0RF folic acid 1 mg Tablet 1 mg PO DAILY Qty: 30 0RF thiamine mononitrate (vit B1) 100 mg Tablet 100 mg PO DAILY Qty: 30 0RF levothyroxine [Synthroid] 25 mcg tablet 25 mcg PO DAILY@0600 pravastatin 80 mg tablet 80 mg PO DAILY lisinopril 10 mg tablet 20 mg PO DAILY cholecalciferol (vitamin D3) 50 mcg (2,000 unit) capsule 50 mcg PO DAILY lutein 40 mg capsule 40 mg PO DAILY Rx Instructions: administer with meals Premarin 0.625 mg/gram cream 0.625 mg vaginal MOWEFR@0900 Rx Instructions: off 5 days; repeat cycle hrpwalh-cohr-rkwpz-oreg-capryl 100 mg-150 mg- 50 mg-150 mg capsule 1 cap PO DAILY Referrals: Apolinar Mcelroy MD [Primary Care Provider] - Interventions: ED Discharge Assessment Last Done: 04/02/23 15:57 Discharge Date/Time: 04/02/23 16:07
--- NOTE | 2023-04-02 13:30 | ECG_ITS ---
Test Reason : hypertention Blood Pressure : / mmHG Vent. Rate : 069 BPM Atrial Rate : 069 BPM P-R Int : 150 ms QRS Dur : 090 ms QT Int : 398 ms P-R-T Axes : 029 -28 011 degrees QTc Int : 426 ms Sinus rhythm with occasional Premature ventricular complexes Otherwise normal ECG When compared with ECG of 14-OCT-2004 10:50, Premature ventricular complexes are now Present Referred By: Sabi Gibbs Electronically Signed By:ROLDAN VILLELA MD
[2023-04-02 14:02] LABS: Basophils Absolute Auto 0.1 X10*3/uL (0.0-0.2); Basophils Percent Auto 0.8 % (0-2); Eosinophils Absolute Auto 0.1 X10*3/uL (0.0-0.4); Hematocrit 40.9 % (37.0-47.0); Hemoglobin 13.2 g/dl (12.0-16.0); Imm Gran Abs Auto 0.02 X10*3/uL (0.00-0.03); Imm Gran Pct Auto 0.3 % (0.0-0.4); Lymphocytes Percent Auto 16.4 % (20-40); MANUAL DIFF FLAG NO; Mean Corpuscular HGB Conc 32.3 g/dl (31.0-35.0); Mean Corpuscular Hemoglobin 29.3 pg (27.0-33.0); Mean Corpuscular Volume 90.9 fL (80.0-98.0); Mean Platelet Volume 9.6 fL (9.4-12.3); Monocytes Absolute Auto 0.5 X10*3/uL (0.1-1.2); Monocytes Percent Auto 7.8 % (2-11); Neutrophils Absolute Auto 4.4 x10*3/uL (2.0-8.3); Neutrophils Percent Auto 73.7 % (45-73); Platelet Count 324 X10*3/uL (160-400); Red Cell Distribution Width 13.7 % (11.0-16.0); White Blood Count 5.9 X10*3/uL (4.8-10.8)
[2023-04-02 14:16] LABS: Alanine Aminotransferase 16 U/L (0-31); Albumin Level 4.4 g/dL (3.5-5.0); Alkaline Phosphatase 73 U/L (39-117); Anion Gap 11 (12-20); Aspartate Amino Transferase 17 U/L (5-31); Bilirubin Total 0.4 mg/dL (0.0-1.0); Blood Urea Nitrogen 9 mg/dL (9-16); Calcium 9.5 mg/dL (8.4-10.2); Carbon Dioxide 29 mmol/L (22-29); Chloride 107 mmol/L (96-108); Creatinine Clr Calc Pharmacy 58.5; Estimated Glomerular Filt Rate > 60; Glucose Random 96 mg/dL (60-115); Potassium 3.7 mmol/L (3.3-5.1); Sodium 143 mmol/L (135-145); Total Protein 7.3 g/dL (6.5-8.0)
[2023-04-02 14:24] LABS: Troponin-I High Sensitivity < 2.7 ng/L (<3.5-17.0)
[2023-04-02 14:40] VITALS: BP 178/92; PULSE 80; RESP 20; O2SAT 97
[2023-04-02] MEDS: amLODIPine Besylate 5 MG TABLET PO (14:40)
[2023-04-02 15:23] VITALS: BP 180/67; PULSE 67; RESP 15
[2023-04-02 15:38] VITALS: BP 184/92; PULSE 73; RESP 12
--- NOTE | 2023-04-02 15:48 | PC.NURSE ---
assumed care of pt at 1500. pt a&o x4, pleasant, calm, and cooperative. pt resting quietly on stretcher in no apparent distress. rr even/unlabored. BP still elevated, documented per worklist. provider aware. pt on monitor and 15 min BP checks. call gan within pt reach. plan of care ongoing.
[2023-04-02 15:54] VITALS: BP 181/60; PULSE 76; RESP 14
== END 2023-04-02 16:07 | disposition home or self-care (01) ==
PROVIDERS: Nurse Practitioner Family; Emergency Provider Emergency Medicine; PCP Internal Medicine
DX: I10 Essential (primary) hypertension (principal); R51.9 Headache, unspecified; Z87.891 Personal history of nicotine dependence; Z79.02 Long term (current) use of antithrombotics/antiplatelets; Z79.82 Long term (current) use of aspirin; Z79.899 Other long term (current) drug therapy; Z86.73 Personal history of transient ischemic attack (TIA), and cerebral infarction without residual deficits
CPT/HCPCS: 36415; 80053; 84484; 85025; 93005; 99283; 99284

== ENCOUNTER → 2023-04-02 13:30 | Outpatient (BNV) | payer MEDICARE, OTHER, SELFPAY | PROVIDERS: Emergency Provider Emergency Medicine; PCP Internal Medicine; Visit Provider Internal Medicine Cardiovascular Disease | DX: I49.3 Ventricular premature depolarization (principal) | CPT/HCPCS: 93010 ==

== ENCOUNTER 2023-04-04 19:29 | Inpatient (IN) | payer MEDICARE, OTHER, SELFPAY ==
--- NOTE | 2023-04-04 | ECG_ITS ---
Test Reason : NEURO Blood Pressure : / mmHG Vent. Rate : 080 BPM Atrial Rate : 080 BPM P-R Int : 170 ms QRS Dur : 088 ms QT Int : 374 ms P-R-T Axes : 057 -30 016 degrees QTc Int : 431 ms Sinus rhythm with frequent Premature ventricular complexes Left axis deviation Abnormal ECG When compared with ECG of 02-APR-2023 13:45, No significant change was found Referred By: Generic ED Physician Electronically Signed By:ROLDAN VILLELA MD
--- NOTE | ~2023-04-04 | CT_ITS ---
EXAMINATION: CT ANGIOGRAM HEAD CT ANGIOGRAM NECK CLINICAL INFORMATION: Aphasia. COMPARISON: CT head from 04/04/2023. TECHNIQUE: Initial noncontrast leadership development manager imaging of the head and neck was performed. Comparison is made with noncontrast head CT from earlier today. Test bolus sequences followed by intravenous administration 70 mL of Omnipaque 350. Helical imaging was performed in the axial plane from the aortic arch to the skull vertex. Delayed postcontrast imaging of the head was also performed. The data was processed at the lead technologist in cytogenetics's workstation for generation of MIP sequences. Angled MIPs and volume rendered reformatted images were also generated at an offline 3D workstation. Stenoses are assessed in accordance with NASCET criteria unless otherwise indicated. This CT examination was performed using dose optimization techniques as appropriate, variously including the following: *Automated exposure control. *Adjustment of mA and/or kV according to patient size (this includes techniques or standardized protocols for targeted exams where dose is matched to indication/reason for exam; i.e. extremities or head). *Use of iterative reconstruction technique. DLP: 1423 mGy-cm FINDINGS: CT Head: There is no evidence of acute intracranial hemorrhage or edematous territorial infarction. Almodovar-white matter differentiation is preserved. Scattered and partially confluent hypoattenuation in the periventricular and deep white matter are consistent with moderate microangiopathy. Proportional prominence of the ventricles and sulcal spaces without evidence of obstructive hydrocephalus. No abnormal mass effect or midline shift. No extra-axial fluid collections. Calcific atherosclerotic disease of the intracranial internal carotid and vertebral arteries. No hyperdense vessel sign. No demonstrated abnormal intracranial enhancement. No acute soft tissue or osseous abnormalities. Mild mucosal thickening of the paranasal sinuses. The mastoid air cells and middle ear cavities are clear. Bilateral lens extractions. CT Neck: There are heterogeneous part-cystic and part-solid lesions in the right thyroid lobe, measuring up to 3.2 cm. The remaining cervical soft tissues are within normal limits. Straightening of the normal cervical lordosis. Moderate degenerative anterolisthesis of C4 on C5. Advanced degenerative disc disease at C5-C6 and C6-C7. Moderate degenerative disc disease at all additional levels. Facet and uncovertebral joint arthropathy leads to osseous encroachment on the neural foramina from C3-C7. CT Upper Chest: Mild centrilobular emphysema the visualized upper lungs. Coronary artery calcifications: Present - moderate. Neck CTA: Aortic Arch: Normal contour and caliber with moderate calcific atherosclerotic disease. Classic 3 vessel branching pattern of the aortic arch. Great Vessel Origins: No significant stenosis of the branch origins. Right Common Carotid Artery: No focal stenosis or occlusion. Cervical Right Internal Carotid Artery: Calcific atherosclerotic disease of the carotid bulb and proximal internal carotid artery causing less than 50% stenosis. Left Common Carotid Artery: No focal stenosis or occlusion. Cervical Left Internal Carotid Artery: Mild calcific atherosclerotic disease of the carotid bulb and proximal internal carotid artery without flow-limiting stenosis. Cervical Right Vertebral Artery: Co-dominant. No focal stenosis or occlusion. Cervical Left Vertebral Artery: Co-dominant. Atherosclerotic disease causes mild stenosis of the origin. No additional focal stenosis or occlusion. Brain CTA: Intracranial Internal Carotid Arteries: Calcific atherosclerotic disease of the intracranial internal carotid arteries without occlusion or flow-limiting stenosis. Right Anterior Cerebral Artery: Normal A1 segment. Normal opacification of the distal ENOC segments. Left Anterior Cerebral Artery: Normal A1 segment. Normal opacification of the distal ENOC segments. Anterior Communicating Artery: Normal. Right Middle Cerebral Artery: Normal M1 segment of the MCA without focal stenosis or occlusion. Normal arborization of the distal segments. Left Middle Cerebral Artery: Normal M1 segment of the MCA without focal stenosis or occlusion. Normal arborization of the distal segments. Right Vertebral Artery: Normal V4 segment. The posterior inferior cerebellar artery is not well opacified; however, there is no CT evidence of acute occlusion. Left Vertebral Artery: Normal V4 segment. Normal opacification of the proximal segments of the posterior inferior cerebellar artery. Basilar Artery: Normal without focal stenosis or occlusion. Normal appearance of the proximal superior cerebellar arteries. Right Posterior Cerebral Artery: Normal P1 segment. Normal opacification of the distal CONTRACTS ADMINISTRATOR segments. Left Posterior Cerebral Artery: Normal P1 segment. Normal opacification of the distal CONTRACTS ADMINISTRATOR segments. Normal opacification of the superior sagittal, straight, transverse, and sigmoid sinuses. CT/CT angio head neck stroke IMPRESSION: 1. No evidence of acute intracranial hemorrhage or edematous territorial infarction. 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 2. CTA of the head and neck without proximal occlusion or flow-limiting stenosis. 3. Heterogeneous cystic and solid lesions in the right thyroid lobe. Recommend further characterization with thyroid ultrasound. This critical result was discussed with Dr. Isaac Roy at 20:35 on 04/04/2023 and it was ascertained that the content and urgency of the report was understood at the time of direct communication.
--- NOTE | ~2023-04-04 | CT_ITS ---
EXAMINATION: CT HEAD WITHOUT CONTRAST CLINICAL INFORMATION: Aphasia. COMPARISON: None available. TECHNIQUE: Contiguous axial imaging was performed from the skull base to vertex without intravenous administration of contrast. This CT examination was performed using dose optimization techniques as appropriate, variously including the following: *Automated exposure control. *Adjustment of mA and/or kV according to patient size (this includes techniques or standardized protocols for targeted exams where dose is matched to indication/reason for exam; i.e. extremities or head). *Use of iterative reconstruction technique. DLP: 591 mGy-cm FINDINGS: There is no evidence of acute intracranial hemorrhage or edematous territorial infarction. Almodovar-white matter differentiation is preserved. Scattered and partially confluent hypoattenuation in the periventricular and deep white matter are consistent with moderate microangiopathy. Proportional prominence of the ventricles and sulcal spaces without evidence of obstructive hydrocephalus. No abnormal mass effect or midline shift. No extra-axial fluid collections. Calcific atherosclerotic disease of the intracranial internal carotid and vertebral arteries. No hyperdense vessel sign. No acute soft tissue or osseous abnormalities. Mild mucosal thickening of the paranasal sinuses. The mastoid air cells and middle ear cavities are clear. Bilateral lens extractions. CT/CT head for stroke IMPRESSION: 1. No evidence of acute intracranial hemorrhage or edematous territorial infarction. 2. 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 This critical result was discussed with Dr. Isaac Roy at 20:35 on 04/04/2023 and it was ascertained that the content and urgency of the report was understood at the time of direct communication.
--- NOTE | ~2023-04-04 | MR_ITS ---
EXAMINATION: MR BRAIN WITHOUT CONTRAST CLINICAL INFORMATION: Stroke-like symptoms. Aphasia. COMPARISON: None. TECHNIQUE: Multiplanar, multisequence imaging of the brain was performed without contrast. FINDINGS: No diffusion abnormalities are identified to suggest an acute infarct infarct. No mass effect or midline shift is seen. No extra-axial fluid collections are seen. The cerebellum is normal. The gradient refocused acquisition is normal. [id number] chronic white matter microangiopathic changes noted with moderate diffuse brain parenchymal volume loss and concordant ex vacuo prominence of the ventricles. There are milder chronic small vessel ischemic changes in the jaxson as well. 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 The craniovertebral junction, marrow signal, and remaining midline structures are normal. The major intracranial flow voids at the level of the [place] are preserved. The dural venous sinus flow voids are maintained. The mastoid air cells are well aerated. Mild right maxillary sinus mucosal thickening noted. MR/MR head/brain wo con IMPRESSION: No acute intracranial process. [id number] chronic white matter microangiopathy and generalized brain parenchymal volume loss.
[2023-04-04 19:39] VITALS: BP 150/120; PULSE 88; O2SAT 99
[2023-04-04 19:42] VITALS: BMI 28.5
[2023-04-04 19:49] VITALS: PULSE 82; RESP 17; O2SAT 96
--- NOTE | 2023-04-04 19:56 | PC.NURSE ---
brock [phone] lives in [facility] when talking to mom she was unable to say basic words. Daughter was concerned and told her to call [phone]- time approx was [phone]
--- NOTE | 2023-04-04 20:06 | PC.NURSE ---
spoke to provider and charge nurse regarding conversation with daughter, Pt moved into bed12. Rebecca RN given report and provider at bedside
[2023-04-04 20:21] LABS: Glucose, Whole Blood 99 mg/dL (60-115)
--- NOTE | 2023-04-04 20:28 | ED.GENADULT ---
HPI - General Adult General Chief complaint: General Medical Stated complaint: anxious htn Time Seen by Provider: 04/04/23 19:51 Source: patient, RN notes reviewed and old records reviewed Mode of arrival: EMS Limitations: no limitations History of Present Illness HPI narrative: 82-year-old female presents for evaluation of high blood pressure. Patient was seen here 2 days ago for similar. She had a surgical procedure cancel on due to hypertension Patient was then sent to the ER and was started on amlodipine in addition to having a lisinopril doubled from 10 mg to 20 mg She reports that around 6:20 p.m. today she was experiencing difficulty with word finding and slurred speech She also had some numbness in her right hand that resolved Patient reports that her symptoms have improved but she still has a dull right-sided headache Denies any history of stroke She is somewhat anxious about her elevated blood pressure Related Data Home Medications Medication Instructions Recorded Confirmed cholecalciferol (vitamin D3) 50 50 mcg PO DAILY 02/06/20 04/11/21 mcg (2,000 unit) capsule conjugated estrogens 0.625 mg/gram 0.625 mg vaginal 2XW 02/06/20 04/11/21 vaginal cream (Premarin) levothyroxine 25 mcg tablet 25 mcg PO DAILY 02/06/20 04/11/21 (Synthroid) lisinopril 10 mg tablet 10 mg PO DAILY 02/06/20 04/11/21 lutein 40 mg capsule 40 mg PO DAILY 02/06/20 04/11/21 pravastatin 80 mg tablet 80 mg PO DAILY 02/06/20 04/11/21 tumeric 100 mg-jaguar 150 mg-olive cap PO PRN 04/11/21 04/11/21 50 mg-oreg 150 mg-caprylate capsule mirabegron 25 mg tablet,extended 25 mg PO DAILY 09/15/22 release 24 hr (Myrbetriq) Previous Rx's Medication Instructions Recorded omeprazole 20 mg capsule,delayed 20 mg PO DAILY 90 days #90 caps 08/19/22 release diclofenac sodium 1 % topical gel 4 g topical QID pain #100 grams 09/15/22 (Arthritis Pain (diclofenac)) lidocaine 5 % topical patch 1 patch topical DAILY pain 30 days 09/15/22 #30 ea amlodipine 5 mg tablet 5 mg PO DAILY #14 tabs 01/11/24 amlodipine 5 mg tablet 5 mg PO DAILY #14 tabs 04/02/23 Allergies Allergy/AdvReac Type Severity Reaction Status Date / Time No Known Allergies Allergy Verified 04/02/23 13:20 [No Known Allergies*] Review of Systems Constitutional: Constitutional: Denies chills, Denies fever(s), Denies frequent falls and Reports headache(s) Eyes: Eyes: Denies blurry vision ENT: Reports headache(s) and Denies sore throat Cardiovascular: Cardiovascular: Denies chest pain and Denies dyspnea Respiratory: Respiratory: Denies cough and Denies dyspnea Gastrointestinal: Gastrointestinal: Denies abdominal pain, Denies nausea and Denies vomiting Genitourinary: Genitourinary: Denies dysuria Musculoskeletal: Musculoskeletal: Denies back pain, Denies myalgias and Reports numbness Integumentary/Breasts: Skin/Breast: Denies rash Neurologic: Reports Abnormal speech present, Denies frequent falls, Reports headache(s) and Reports numbness Psychiatric: Psychiatric: Denies depression PMFSH Past Medical History Onset Date is defined in the Problem List Problems that require an onset date and time if occurred within 24 hrs of arrival to the ED Aortic Dissection and Rupture; Neurologic impairment; Cardiopulmonary Arrest; Endotracheal Intubation; Insertion or Replacement of Mechanical Circulatory Assist Device Medical History Family hx of colon cancer requiring screening colonoscopy GERD (gastroesophageal reflux disease) Surgical History History of esophagogastroduodenoscopy (EGD) Hx of colonoscopy Family History Family History Father No problems noted. Mother No problems noted. Sister No problems noted. Social History Social History Household Members: None Housing: House Alcohol intake: current Alcohol intake frequency: 0-2 drinks per day Alcohol type: beer and wine Patient Tobacco Use Status: Former Tobacco user Advance Directives: No Advance Directives Information Provided: Yes Current occupational status: retired Physical Exam ED Vital Signs: Vital Signs - 24 hr 04/04/23 19:49 04/04/23 21:53 Temperature 97.9 F Pulse Rate 82 77 Respiratory Rate 17 16 Blood Pressure 165/98 H Pulse Oximetry 96 96 Oxygen Delivery Method Room Air Room Air BMI result Body Mass Index 31.6 Const General: healthy appearing, comfortable, no acute distress, alert and awake Nutritional Appearance: well nourished Orientation/consciousness: patient oriented x3 HENMT Head: Yes normocephalic and Yes atraumatic Eyes Eyelids: Yes eyelids normal Conjunctivae: conjunctivae normal Sclerae: sclerae normal Corneas: corneas normal Pupils: Equal, round and reactive pupils present EOM: EOMs intact bilaterally Neck Neck: Yes full ROM Resp Effort & Inspection: normal respiratory effort, able to speak in complete sentences and not labored GI Inspection: No distended Palpation (GI): Soft to palpation, not firm, nontender, no guarding and not rigid Skin General skin exam: elasticity normal Neuro General: patient oriented x3 Cranial nerves: Yes CN's II-XII intact bilaterally, Yes Equal, round and reactive pupils present and Yes Bilaterally intact EOM present Cognition (Neuro): normal cognition Speech: Abnormal speech present Extrem Other: Moving all extremities well without any obvious deformities NIH Stroke Scale Internal: Initial- Upon Arrival Time: 20:15 Level of Consciousness: Alert Level of Consciousness Questions: Answers both questions correctly Level of Consciousness Commands: Performs both tasks correctly Best Gaze: Normal Visual: No visual loss Facial Palsy: Normal Motor Arm (Right): No drift Motor Arm (Left): No drift Motor Leg (Right): No drift Motor Leg (Left): No drift Limb Ataxia: Absent Sensory: Normal Best Language: No aphasia Dysarthia: Normal Extinction and Inattention: No abnormality Score: 0 Course Reevaluation(s) Reevaluation #1: Given the reported expressive aphasia and difficult to the word-finding, as well as the patient's numbness in her right hand and dysarthria, a stroke alert was called. Currently the patient had an NIH stroke score of 0 and is asymptomatic. Her symptoms started around 6:20 p.m. today per her report which was verified by her daughter who was talking to her on the phone around this time. Time: 20:15 Reevaluation #2: Received call from [facility], the patient's CT scan showed no evidence of large territorial infarct, acute hemorrhage or large vessel occlusion Time: 20:44 Reevaluation #3: Patient re-evaluated, she remains asymptomatic. Will discuss with the hospitalist for admission Time: 22:44 Medications Administered Discontinued Medications Generic Name Dose Route Start Last Admin Trade Name Amie PRN Reason Stop Dose Admin Aspirin 324 mg 04/04/23 20:38 04/04/23 20:43 Aspirin 81 Mg Tab.Chew PO 04/04/23 20:39 324 mg ONCE ONE Administration Iohexol 100 ml 04/04/23 20:32 04/04/23 20:32 Iohexol 350 Mg/Ml 100 Ml Infus..Btl IV 04/04/23 20:33 70 ml ONCE ONE Administration Medical Decision Making Medical Decision Making MDM Narrative: 82-year-old female presents for evaluation of high blood pressure and expressive aphasia. Her symptoms last about 10-15 minutes with the last known well time around 6:00 p.m. today. Currently she has an NIH stroke score of 0 will be given the concerning history reported with slurred speech, difficulty with word finding and numbness to her right hand a stroke protocol was ordered. Differential Diagnosis Differential Diagnoses: The differential diagnosis associated with the presentation includes TIA CVA Intracranial hemorrhage Hypertension Anxiety Admission/Observation Consideration of admission/observation: Escalation of care including admission/observation considered Lab Data [facility] Lab Attestation statement: I reviewed the patient's lab results. No leukocytosis or anemia. Normal platelet count. 04/04/23 20:20 04/04/23 20:20 Labs: Lab Results 04/04/23 04/04/23 Range/Units 20:16 20:20 WBC 5.8 (4.8-10.8) X10*3/uL RBC 4.90 (4.20-5.50) X10*6/uL Hgb 14.3 (12.0-16.0) g/dl Hct 43.5 (37.0-47.0) % MCV 88.8 (80.0-98.0) fL MCH 29.2 (27.0-33.0) pg MCHC 32.9 (31.0-35.0) g/dl RDW 13.4 (11.0-16.0) % Plt Count 304 (160-400) X10*3/uL MPV 9.6 (9.4-12.3) fL Immature Gran % (Auto) 0.2 (0.0-0.4) % Neut % (Auto) 62.4 (45-73) % Lymph % (Auto) 23.2 (20-40) % Cooper % (Auto) 10.4 (2-11) % Eos % (Auto) 2.6 (0-4) % Baso % (Auto) 1.2 (0-2) % Lymph # (Auto) 1.3 (1.2-4.9) X10*3/uL Cooper # (Auto) 0.6 (0.1-1.2) X10*3/uL Eos # (Auto) 0.2 (0.0-0.4) X10*3/uL Baso # (Auto) 0.1 (0.0-0.2) X10*3/uL Abs Immat Gran (auto) 0.01 (0.00-0.03) X10*3/uL Absolute Neuts (auto) 3.6 (2.0-8.3) x10*3/uL Absolute Nucleated RBC 0.000 (0.0-0.012) X10*3/uL Nucleated RBC % (auto) 0.0 (0.0-0.2) /100WBC PT 10.1 L (11.1-13.3) SEC INR 0.8 L (0.9-1.1) APTT 30.3 (26.0-36.4) SEC Sodium 138 (135-145) mmol/L Potassium 5.4 H D (3.3-5.1) mmol/L Chloride 105 (96-108) mmol/L Carbon Dioxide 22 (22-29) mmol/L Anion Gap 16 (12-20) BUN 17 H (9-16) mg/dL Creatinine 0.83 (0.5-1.4) mg/dL Estim Creat Clear Calc 49.5 Estimated GFR > 60 POC Glucose 99 (60-115) mg/dL Random Glucose 98 (60-115) mg/dL Calcium 9.8 (8.4-10.2) mg/dL Total Bilirubin 0.4 (0.0-1.0) mg/dL AST 39 H (5-31) U/L ALT 22 (0-31) U/L Alkaline Phosphatase 81 (39-117) U/L Troponin I High Sens < 2.7 (<3.5-17.0) ng/L Total Protein 8.4 H (6.5-8.0) g/dL Albumin 4.5 (3.5-5.0) g/dL Lipase 28 (8-78) U/L Independent Interpretation I performed an independent interpretation of an: CT Scan (No intracranial hemorrhage, mass effect) Radiology Impression Discussion of test interpretation with radiology: I discussed test interpretation with the radiologist and I have reviewed the radiologist's reading. Radiologist Impression: No acute findings Discharge Plan Discharge Clinical Impression: Expressive aphasia, Dysarthria Patient Disposition: Admitted As Inpatient Prescriptions: No Action omeprazole 20 mg capsule,delayed release(DR/EC) 20 mg PO DAILY 90 Days Qty: 90 3RF amlodipine 5 mg tablet 5 mg PO DAILY Qty: 14 0RF amlodipine 5 mg tablet 5 mg PO DAILY Qty: 14 0RF levothyroxine [Synthroid] 25 mcg tablet 25 mcg PO DAILY pravastatin 80 mg tablet 80 mg PO DAILY lisinopril 10 mg tablet 10 mg PO DAILY cholecalciferol (vitamin D3) 50 mcg (2,000 unit) capsule 50 mcg PO DAILY lutein 40 mg capsule 40 mg PO DAILY Rx Instructions: administer with meals Premarin 0.625 mg/gram cream 0.625 mg vaginal 2XW Rx Instructions: off 5 days; repeat cycle zzlnszx-mzlm-glkuc-oreg-capryl 100 mg-150 mg- 50 mg-150 mg capsule PO PRN Myrbetriq 25 mg tablet extended release 24 hr 25 mg PO DAILY lidocaine 5 % adhesive patch,medicated 1 patch topical DAILY 30 Days Qty: 30 1RF diclofenac sodium [Arthritis Pain (diclofenac)] 1 % gel 4 g topical QID Qty: 100 2RF
[2023-04-04 20:30] LABS: MANUAL DIFF FLAG NO
[2023-04-04] MEDS: iohexoL 350 MG/ML 100 ML INFUS..BTL IV (20:32)
[2023-04-04 20:35] LABS: Basophils Absolute Auto 0.1 X10*3/uL (0.0-0.2); Basophils Percent Auto 1.2 % (0-2); Eosinophils Absolute Auto 0.2 X10*3/uL (0.0-0.4); Eosinophils Percent Auto 2.6 % (0-4); Hematocrit 43.5 % (37.0-47.0); Hemoglobin 14.3 g/dl (12.0-16.0); Imm Gran Abs Auto 0.01 X10*3/uL (0.00-0.03); Imm Gran Pct Auto 0.2 % (0.0-0.4); Lymphocytes Absolute Auto 1.3 X10*3/uL (1.2-4.9); Lymphocytes Percent Auto 23.2 % (20-40); Mean Corpuscular HGB Conc 32.9 g/dl (31.0-35.0); Mean Corpuscular Hemoglobin 29.2 pg (27.0-33.0); Mean Corpuscular Volume 88.8 fL (80.0-98.0); Mean Platelet Volume 9.6 fL (9.4-12.3); Monocytes Absolute Auto 0.6 X10*3/uL (0.1-1.2); Monocytes Percent Auto 10.4 % (2-11); Neutrophils Absolute Auto 3.6 x10*3/uL (2.0-8.3); Neutrophils Percent Auto 62.4 % (45-73); Platelet Count 304 X10*3/uL (160-400); Red Cell Distribution Width 13.4 % (11.0-16.0); White Blood Count 5.8 X10*3/uL (4.8-10.8)
--- NOTE | 2023-04-04 20:35 | PC.NURSE ---
Assumed care of patient, stroke alert called by Kevin NGUYEN. IV #20 placed in L-AC, labs sent. POC:99, PT 13.5, INR:1.[address] PT alert and oriented X4, per pt last known well time 1819, started having slurred speech and diiculty recalling or finding words. At this time pt appears to have speech intact with minimal to no slurred speech. BP elevated. Plan of care on going.
[2023-04-04 20:40] VITALS: BMI 31.6
[2023-04-04] MEDS: Aspirin 81 MG TAB.CHEW 324 MG PO (20:43)
[2023-04-04 20:47] LABS: Alanine Aminotransferase 22 U/L (0-31); Albumin Level 4.5 g/dL (3.5-5.0); Alkaline Phosphatase 81 U/L (39-117); Anion Gap 16 (12-20); Aspartate Amino Transferase 39 U/L (5-31); Bilirubin Total 0.4 mg/dL (0.0-1.0); Blood Urea Nitrogen 17 mg/dL (9-16); Calcium 9.8 mg/dL (8.4-10.2); Carbon Dioxide 22 mmol/L (22-29); Chloride 105 mmol/L (96-108); Creatinine Clr Calc Pharmacy 49.5; Estimated Glomerular Filt Rate > 60; Glucose Random 98 mg/dL (60-115); INTERNATIONAL NORM RATIO 0.8 (0.9-1.1); Lipase 28 U/L (8-78); Potassium 5.4 mmol/L (3.3-5.1); Prothrombin Time 10.1 SEC (11.1-13.3); Sodium 138 mmol/L (135-145); Total Protein 8.4 g/dL (6.5-8.0)
[2023-04-04 20:49] LABS: Partial Thromboplastin Time 30.3 SEC (26.0-36.4)
[2023-04-04 20:57] LABS: Troponin-I High Sensitivity < 2.7 ng/L (<3.5-17.0)
--- NOTE | 2023-04-04 20:57 | PC.NURSE ---
asa given per orders, pt ambulated to the bathroom supervised without difficulty. Changed into hospital attire.
[2023-04-04 21:53] VITALS: BP 165/98; PULSE 77; RESP 16; TEMP 36.6; O2SAT 96
--- NOTE | 2023-04-04 23:21 | P.HPHOSP_ITS ---
History of Present Illness Date of Service: 04/04/23 Attending physician on admission: Shahana Borjas Chief Complaint: Speech difficulty Jeny León is 82 years old woman with past medical history significant for hypothyroidism, hypertension and hyperlipidemia presents to the emergency department complaining of speech difficulty/slurred speech this evening around 18:00. She also complained of numbness to his left index finger and left-sided head pressure. She denied facial droop, gait difficulty, double vision, nausea or vomiting. She denies any weakness to her lower extremities. She denies fevers chills. She denies any cardiopulmonary, gastrointestinal genitourinary symptoms. She denied tobacco smoking or illicit drug use. She does drink alcohol daily -usually 2-3 cans of beer and wine. The last time she drank was yesterday. Last patient was scheduled for a bladder procedure and was suspended as her blood pressure was found to have 231/154. She was sent to the emergency department for evaluation and was started on amlodipine 5 mg p.o. daily (she only took 1 dose today). She also takes lisinopril for hypertension. In the ED, she was found to have hypertension. Her blood pressure is 159/90. The rest of the vital signs are normal. Blood workup is remarkable for a slight hyperkalemia of 5.4. Creatinine is normal. AST is elevated. ALT, alk phos and bilirubin are normal. She has no leukocytosis and hemoglobin is normal. Head CT scan without contrast and head/neck CTA are unremarkable. ECG showed normal sinus rhythm, PACs, LAD and no ischemic changes. ED tx: Aspirin 324 mg p.o. x1 Review of Systems 2 Review of Systems: All 12 systems were reviewed and normal except as noted in HPI. [facility] Medical History Family hx of colon cancer requiring screening colonoscopy GERD (gastroesophageal reflux disease) Family History Father No problems noted. Mother No problems noted. Sister No problems noted. Surgical History History of esophagogastroduodenoscopy (EGD) Hx of colonoscopy Social History Household Members: None Housing: House Alcohol intake: current Alcohol intake frequency: 0-2 drinks per day Alcohol type: beer and wine Patient Tobacco Use Status: Former Tobacco user Advance Directives: No Advance Directives Information Provided: Yes Current occupational status: retired Meds Allergies Allergy/AdvReac Type Severity Reaction Status Date / Time No Known Allergies Allergy Verified 04/02/23 13:20 [No Known Allergies*] Active Medications: Current Medications Acetaminophen (Acetaminophen 325 Mg Tablet) 650 mg PO Q6H PRN PRN Reason: Headache Heparin Sodium (Porcine) (Heparin Sodium,Porcine 5,000 Unit/Ml Vial) 5,000 unit SUBCUT Q12H MACO Melatonin (Melatonin 3 Mg Tablet) 6 mg PO BEDTIME PRN PRN Reason: Insomnia Sodium Chloride (0.9 % Sodium Chloride Flush 3 Ml Syringe) 3 ml IVFLUSH QSHIFT MACO Home Medications Medication Instructions Recorded Confirmed Last Taken Type cholecalciferol (vitamin D3) 50 50 mcg PO DAILY 02/06/20 04/11/21 Unknown History mcg (2,000 unit) capsule conjugated estrogens 0.625 mg/gram 0.625 mg vaginal 2XW 02/06/20 04/11/21 Unknown History vaginal cream (Premarin) levothyroxine 25 mcg tablet 25 mcg PO DAILY 02/06/20 04/11/21 Unknown History (Synthroid) lisinopril 10 mg tablet 10 mg PO DAILY 02/06/20 04/11/21 Unknown History lutein 40 mg capsule 40 mg PO DAILY 02/06/20 04/11/21 Unknown History pravastatin 80 mg tablet 80 mg PO DAILY 02/06/20 04/11/21 Unknown History tumeric 100 mg-jaguar 150 mg-olive cap PO PRN 04/11/21 04/11/21 Unknown History 50 mg-oreg 150 mg-caprylate capsule mirabegron 25 mg tablet,extended 25 mg PO DAILY 09/15/22 Unknown History release 24 hr (Myrbetriq) Physical Exam 2 Vital Signs and Narrative: Vital Signs: Last Vital Signs Temp 97.9 F 04/04/23 21:53 Pulse 77 04/04/23 21:53 Resp 16 04/04/23 21:53 BP 165/98 H 04/04/23 21:53 Pulse Ox 96 04/04/23 21:53 O2 Del Method Room Air 04/04/23 21:53 BMI result Body Mass Index 31.6 Constitutional - Awake and Alert, No apparent distress Eyes - PERRLA, EOMI Cardiovascular - S1S2, RRR, No edema Respiratory - Normal lung expansion, Normal respiratory effort, No respiratory distress, CTA bilaterally Gastrointestinal - NT / ND; +BS; No rebound or guarding Extremities - no calf tenderness bilaterally, no swelling Musculoskeletal - Normal inspection, normal ROM Skin - Warm/Dry Neurological - Alert & oriented x3, CN II-XII in tact, 5/5 strength BUE and BLE. No facial droop. Normal speech. Psychological - Appropriate affect Results Labs 04/04/23 20:20 04/04/23 20:20 Labs: Laboratory Results - last 24 hr 04/04/23 04/04/23 20:16 20:20 MCV 88.8 MCH 29.2 MCHC 32.9 RDW 13.4 Plt Count 304 MPV 9.6 Immature Gran % (Auto) 0.2 Neut % (Auto) 62.4 Lymph % (Auto) 23.2 Carbon % (Auto) 10.4 Eos % (Auto) 2.6 Baso % (Auto) 1.2 Lymph # (Auto) 1.3 Carbon # (Auto) 0.6 Eos # (Auto) 0.2 Baso # (Auto) 0.1 Abs Immat Gran (auto) 0.01 Absolute Neuts (auto) 3.6 Absolute Nucleated RBC 0.000 Nucleated RBC % (auto) 0.0 PT 10.1 L INR 0.8 L APTT 30.3 Anion Gap 16 Estim Creat Clear Calc 49.5 Estimated GFR > 60 POC Glucose 99 Random Glucose 98 Calcium 9.8 Total Bilirubin 0.4 AST 39 H ALT 22 Alkaline Phosphatase 81 Total Protein 8.4 H Albumin 4.5 Lipase 28 Imaging Radiologist's Impressions: Impressions Head CT 04/04/23 20:26 IMPRESSION: 1. No evidence of acute intracranial hemorrhage or edematous territorial infarction. 2. 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 This critical result was discussed with Dr. Isaac Roy at 20:35 on 04/04/2023 and it was ascertained that the content and urgency of the report was understood at the time of direct communication. Head/Neck CTA 04/04/23 20:37 IMPRESSION: 1. No evidence of acute intracranial hemorrhage or edematous territorial infarction. 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 2. CTA of the head and neck without proximal occlusion or flow-limiting stenosis. 3. Heterogeneous cystic and solid lesions in the right thyroid lobe. Recommend further characterization with thyroid ultrasound. This critical result was discussed with Dr. Isaac Roy at 20:35 on 04/04/2023 and it was ascertained that the content and urgency of the report was understood at the time of direct communication. Assessment and Plan (1) TIA (transient ischemic attack): Status: Acute (2) Uncontrolled hypertension: Status: Acute Plan Jeny León is 82 years old woman presents with: * Transitory ischemic attack. Rule out stroke. Keeping observation. Telemetry. Neurochecks. Start therapy with aspirin 81 mg p.o. daily. Continue statin. Check lipid panel and hemoglobin A1c. Obtain MRI in the morning. TTE with bubble study. Neurology consult for further recommendations. * Essential hypertension, uncontrolled, improving. Will give amlodipine 5 mg p.o. now and then daily. Continue lisinopril. Continue to monitor blood pressure. * Mild hyperkalemia. Recheck in the morning. * Hyperlipidemia. Continue statin. * Hypothyroidism. Continue levothyroxine. * Alcohol consumption. [facility] protocol. Will consider benzodiazepines as needed. Start therapy with thiamine and folic acid. Patient was advised to abstain from alcohol consumption. * DVT prophylaxis: Heparin subcut Code status: Full Quality Stroke Does the patient have a stroke diagnosis?: No VTE Prior VTE?: No VTE Risk Level:: Medical - moderate - high VTE Device Contraindication: N/A - Device Ordered VTE Drug Contraindication: N/A - Med Ordered
--- OUTSIDE RECORDS SUMMARY | 2023-04-04 23:31 | XMS_ITS | Continuity of Care Document ---
Author Name Unknown Organization [facility] Address [address] [place] [id number]- Encounter [facility] Date(s): 03/08/19 - 03/08/[address] [id number]- [facility] Attending Physician: Ad BARNES, Duane Almazan
[2023-04-05 00:08] VITALS: BP 159/90; PULSE 83; RESP 20; O2SAT 95
[2023-04-05] MEDS: 0.9 % Sodium Chloride Flush 3 ML SYRINGE IVFLUSH (01:16)
[2023-04-05] MEDS: amLODIPine Besylate 5 MG TABLET PO ×2 (01:16→11:11)
[2023-04-05 06:13] VITALS: BP 142/83; PULSE 77; RESP 16; O2SAT 97
[2023-04-05 06:17] LABS: MANUAL DIFF FLAG NO
[2023-04-05] MEDS: Levothyroxine Sodium 25 MCG TABLET PO (06:20)
[2023-04-05 06:40] LABS: Basophils Absolute Auto 0.1 X10*3/uL (0.0-0.2); Eosinophils Absolute Auto 0.1 X10*3/uL (0.0-0.4); Eosinophils Percent Auto 2.9 % (0-4); Hematocrit 37.3 % (37.0-47.0); Hemoglobin 12.3 g/dl (12.0-16.0); Imm Gran Abs Auto 0.02 X10*3/uL (0.00-0.03); Imm Gran Pct Auto 0.4 % (0.0-0.4); Lymphocytes Absolute Auto 1.1 X10*3/uL (1.2-4.9); Lymphocytes Percent Auto 22.7 % (20-40); Mean Platelet Volume 9.6 fL (9.4-12.3); Monocytes Absolute Auto 0.6 X10*3/uL (0.1-1.2); Monocytes Percent Auto 12.6 % (2-11); Neutrophils Absolute Auto 2.9 x10*3/uL (2.0-8.3); Neutrophils Percent Auto 60.4 % (45-73); Platelet Count 319 X10*3/uL (160-400); Red Blood Count 4.24 X10*6/uL (4.20-5.50); Red Cell Distribution Width 13.4 % (11.0-16.0); White Blood Count 4.9 X10*3/uL (4.8-10.8)
[2023-04-05 06:42] LABS: Troponin-I High Sensitivity < 2.7 ng/L (<3.5-17.0)
[2023-04-05 06:46] LABS: Alanine Aminotransferase 17 U/L (0-31); Alkaline Phosphatase 59 U/L (39-117); Anion Gap 14 (12-20); Aspartate Amino Transferase 18 U/L (5-31); Bilirubin Total 0.6 mg/dL (0.0-1.0); Blood Urea Nitrogen 14 mg/dL (9-16); Calcium 9.2 mg/dL (8.4-10.2); Carbon Dioxide 24 mmol/L (22-29); Chloride 106 mmol/L (96-108); Cholesterol 196 mg/dL (<200); Creatinine Clr Calc Pharmacy 53.3; Estimated Glomerular Filt Rate > 60; Glucose Random 91 mg/dL (60-115); HDL Cholesterol 86 mg/dL (>40); LDL Cholesterol Calculated 100 mg/dL (<100); Potassium 3.7 mmol/L (3.3-5.1); Sodium 140 mmol/L (135-145); Total Protein 6.5 g/dL (6.5-8.0); Triglycerides 54 mg/dL (<150)
[2023-04-05 06:59] LABS: Thyroid Stimulating Hormone 2.36 uIU/mL (0.32-4.0)
[2023-04-05 07:55] LABS: Estimated Average Glucose 97 mg/dL
--- NOTE | 2023-04-05 10:30 | PC.NURSE ---
no distress. resting. breathing well. ate food /drank po fluids well. walked to the bathroom. voiding w/o issues per pt
--- NOTE | 2023-04-05 10:44 | PHA.MEDREC ---
Pharmacy Consult ? Medication Reconciliation Pharmacy has completed the medication reconciliation. Pt had updated med list with them.
[2023-04-05 10:53] LABS: Reflex LDLD? No
[2023-04-05] MEDS: Omeprazole 20 MG CAPSULE.DR PO (11:10)
[2023-04-05] MEDS: Aspirin Enteric Coated 81 MG TABLET.DR PO (11:10)
[2023-04-05] MEDS: lisinopriL 20 MG TABLET PO (11:11)
[2023-04-05] MEDS: Thiamine HCL 100 MG TABLET PO (11:11)
[2023-04-05] MEDS: Folic Acid 1 MG TABLET PO (11:11)
[2023-04-05] MEDS: Heparin Sodium,Porcine 5,000 UNIT/ML VIAL 5000 UNIT SUBCUT ×2 (11:11→20:17)
[2023-04-05 12:00] VITALS: BP 138/73; PULSE 85; RESP 16; TEMP 36.6; O2SAT 98
--- NOTE | 2023-04-05 12:03 | PC.NURSE ---
rn requested pravastatin earlier from pharm - still awaiting to arrival
--- NOTE | 2023-04-05 13:00 | PC.NURSE ---
no distress. resting. breathing well. ate lunch well. walked to the bathroom. voiding w/o issues per pt
--- NOTE | 2023-04-05 14:16 | PC.NURSE ---
called pharmacy again for pravastatin. spoke donna howard pharmacist stating that the pharmaceutical plant operator left it on the counter and never brought it down- tech bringing down to ed shortly
--- NOTE | 2023-04-05 14:54 | MHC.CM.PN ---
Ureña 04/05/23, Pt lives alone, she does not have home health services, she has not used VNA services or been to [facility]. Her son is her HCP, copy requested, it names her son Fabricio, . Med equip: she has a cane, walker, tub bench, but does not currently need to use these. Transportation home will be family. CM to follow and assist with DC planning.
[2023-04-05 16:00] VITALS: BP 104/60; PULSE 89; RESP 18; TEMP 36.6; O2SAT 97
[2023-04-05] MEDS: Pravastatin Sodium 80 MG TABLET PO (16:03)
--- NOTE | 2023-04-05 16:16 | P.PNIM_ITS ---
Subjective Subjective Date of Service: 04/06/23 Interval History: tia Review of Systems weakness and speech improving no fever Physical Exam 2 Vital Signs: Vital Signs: Last Vital Signs Temp 97.8 F 04/05/23 16:00 Pulse 89 04/05/23 16:00 Resp 18 04/05/23 16:00 BP 104/60 04/05/23 16:00 Pulse Ox 97 04/05/23 16:00 O2 Del Method Room Air 04/05/23 16:00 BMI result Body Mass Index 31.6 Appearance: Alert.? Oriented X3.? cvs: rrr, [id number] , no murmur res: clear to auscultation ,no rhonchii or wheezing abd: no rebound or guarding ,nt, bs present. ext pulses present , no cyanosis. neuro: axo3 , nonfocal. Objective Data Active Medications Acetaminophen (Acetaminophen 325 Mg Tablet) 650 mg PO Q6H PRN PRN Reason: Headache Amlodipine Besylate (Amlodipine Besylate 5 Mg Tablet) 5 mg PO DAILY [facility]; Protocol Last Admin: 04/05/23 11:11 Dose: 5 mg Documented By: MANUEL Aspirin (Aspirin Enteric Coated 81 Mg Tablet.) 81 mg PO DAILY [facility] Last Admin: 04/05/23 11:10 Dose: 81 mg Documented By: MANUEL Calcium Carbonate (Calcium Carbonate 500 Mg Tablet) 1 mg PO DAILY [facility] Folic Acid (Folic Acid 1 Mg Tablet) 1 mg PO DAILY [facility] Last Admin: 04/05/23 11:11 Dose: 1 mg Documented By: MANUEL Heparin Sodium (Porcine) (Heparin Sodium,Porcine 5,000 Unit/Ml Vial) 5,000 unit SUBCUT Q12H [facility] Last Admin: 04/05/23 11:11 Dose: 5,000 unit Documented By: MANUEL Levothyroxine Sodium (Levothyroxine Sodium 25 Mcg Tablet) 25 mcg PO DAILY@0600 [facility] Last Admin: 04/05/23 06:20 Dose: 25 mcg Documented By: ROBINSON Lisinopril (Lisinopril 20 Mg Tablet) 20 mg PO DAILY [facility]; Protocol Last Admin: 04/05/23 11:11 Dose: 20 mg Documented By: MANUEL Melatonin (Melatonin 3 Mg Tablet) 6 mg PO BEDTIME PRN PRN Reason: Insomnia Omeprazole (Omeprazole 20 Mg Capsule.Dr) 20 mg PO DAILY@0630 [facility] Pravastatin Sodium (Pravastatin Sodium 80 Mg Tablet) 80 mg PO DAILY [facility] Last Admin: 04/05/23 16:03 Dose: 80 mg Documented By: BRANDAN Sodium Chloride (0.9 % Sodium Chloride Flush 3 Ml Syringe) 3 ml IVFLUSH QSHIFT [facility] Last Admin: 04/05/23 16:04 Dose: Not Given Documented By: BRANDAN Non-Admin Reason: not need Thiamine HCl (Thiamine Hcl 100 Mg Tablet) 100 mg PO DAILY [facility] Last Admin: 04/05/23 11:11 Dose: 100 mg Documented By: MANUEL Vitamin D (Cholecalciferol (Vitamin D3) 25 Mcg Tablet) 50 mcg PO DAILY [facility] Labs 04/05/23 05:51 04/05/23 05:51 Labs: Laboratory Results - last 24 hr 04/04/23 04/04/23 04/05/23 20:16 20:20 05:51 MCV 88.8 88.0 MCH 29.2 29.0 MCHC 32.9 33.0 RDW 13.4 13.4 Plt Count 304 319 MPV 9.6 9.6 Immature Gran % (Auto) 0.2 0.4 Neut % (Auto) 62.4 60.4 Lymph % (Auto) 23.2 22.7 [place] % (Auto) 10.4 12.6 H Eos % (Auto) 2.6 2.9 Baso % (Auto) 1.2 1.0 Lymph # (Auto) 1.3 1.1 L [place] # (Auto) 0.6 0.6 Eos # (Auto) 0.2 0.1 Baso # (Auto) 0.1 0.1 Abs Immat Gran (auto) 0.01 0.02 Absolute Neuts (auto) 3.6 2.9 Absolute Nucleated RBC 0.000 0.000 Nucleated RBC % (auto) 0.0 0.0 PT 10.1 L INR 0.8 L APTT 30.3 Anion Gap 16 14 Estim Creat Clear Calc 49.5 53.3 Estimated GFR > 60 > 60 POC Glucose 99 Random Glucose 98 91 Estimat Average Glucose 97 Hemoglobin A1c % 5.0 Calcium 9.8 9.2 D Total Bilirubin 0.4 0.6 AST 39 H 18 ALT 22 17 Alkaline Phosphatase 81 59 Total Protein 8.4 H 6.5 Albumin 4.5 4.0 Triglycerides 54 Cholesterol 196 LDL Cholesterol, Calc 100 H HDL Cholesterol 86 Lipase 28 TSH 2.36 Assessment and Plan (1) TIA (transient ischemic attack): Status: Acute Plan 82 years old woman presents with: Transitory ischemic attack. Rule out stroke. Keeping observation. symtpoms first time ,she says she had dysarthria ,left side weakness continue Telemetry. Neurochecks. Start therapy with aspirin 81 mg p.o. daily. Continue statin. Check lipid panel and hemoglobin A1c. Obtain MRI in the morning. TTE . Neurology consult for further recommendations. Essential hypertension, uncontrolled, improving. Will give amlodipine 5 mg p.o. now and then daily. Continue lisinopril. Continue to monitor blood pressure. Mild hyperkalemia. Recheck in the morning. Hypothyroidism. Continue levothyroxine. Alcohol consumption. [facility] protocol. Will consider benzodiazepines as needed. Start therapy with thiamine and folic acid. Patient was advised to abstain from alcohol consumption. DVT prophylaxis: Heparin subcut hospilisation need:tia -need work including brain mri,echo and neurology eval, pt/ot -benefit from 24-48hrs stay depending upon workup and neuro input. Quality Stroke Does the patient have a stroke diagnosis?: No VTE Prior VTE?: No VTE Risk Level:: Medical - moderate - high VTE Device Contraindication: N/A - Device Ordered VTE Drug Contraindication: N/A - Med Ordered
--- NOTE | 2023-04-05 17:40 | PC.NURSE ---
no distress. awaiting transport.
[2023-04-05 18:21] VITALS: BMI 28.3
[2023-04-05 18:30] VITALS: BP 141/68; PULSE 76; RESP 17; TEMP 36.7; O2SAT 96
[2023-04-05 18:33] LABS: Prothrombin Time Whole Bld POC 13.5 sec (11.1-13.5)
[2023-04-05 20:00] VITALS: BP 140/83; PULSE 84; RESP 18; TEMP 36; O2SAT 96
[2023-04-06] VITALS: BP 138/67; PULSE 72; RESP 20; TEMP 36.1; O2SAT 96
[2023-04-06 04:00] VITALS: BP 123/71; PULSE 71; RESP 20; TEMP 36.1; O2SAT 92
[2023-04-06] MEDS: Omeprazole 20 MG CAPSULE.DR PO (06:17)
[2023-04-06] MEDS: Levothyroxine Sodium 25 MCG TABLET PO (06:17)
--- NOTE | 2023-04-06 07:00 | CA_ITS ---
Transthoracic Echocardiogram Patient (Last, First, Middle): Jeny León A Gender: Female Date of : 1940 Age: 82 Procedure Date: 04/06/2023 Procedure Type: Transthoracic Echocardiogram Location: [facility] [place] Height: 154.94 cm Weight: 67.59 kg BSA: 1.67 m2 Heart Rate: bpm BP: 126 / 72 mmHg English Language Learner Tutor: Referring MD: Shahana Borjas MD Symptoms: TIA Study Quality: Adequate ECG Rhythm: Sinus Conclusions: - The left ventricular systolic function is low normal. The calculated ejection fraction is 52% by biplane method. - No obvious valvular pathology seen on this study. Findings Left Ventricle Normal left ventricular cavity size. There is mildly increased left ventricular wall thickness. The left ventricular systolic function is low normal. The calculated ejection fraction is 52% by biplane method. There is no evidence of regional wall motion abnormalities. Diastolic function is normal for age. Right Ventricle Normal right ventricular cavity size and systolic function. Atria Both atria are normal in size. Aortic Valve There is a normal trileaflet aortic valve. There is mild calcification of the aortic valve. There is mild aortic valve stenosis. There is no aortic valve regurgitation. Mitral Valve The mitral valve appears normal. There is no mitral valve regurgitation. There is no mitral valve stenosis. Pulmonic Valve The pulmonic valve is likely normal. Tricuspid Valve Normal tricuspid valve structure. There is mild tricuspid valve regurgitation. There is no evidence of pulmonary hypertension. Great Vessels The asc aorta is normal in size. Venous The inferior vena cava is normal in size and collapses greater than 50% with inspiration. Pericardium/Pleural There is no evidence of pericardial effusion. Prior Study Comparison No prior study available for comparison. Recommendations, Care & Conclusions No obvious valvular pathology seen on this study. Measurements 2D Linear Measurements IVSd: 1.07 0.6-0.9/0.6-1.0 cm LVIDd: 4.30 3.9-5.3/4.2-5.9 cm LVIDd Index: 2.57 2.4-3.2/2.2-3.1 cm/m2 LVIDs: 2.75 2.0-3.6 cm LVPWd: 1.09 0.7-1.1 cm Ao Root: 2.90 2.1-3.5 cm LA Diam: 3.50 2.7-3.8/3.0-4.0 cm LAIDs Index: 2.10 1.5-2.3 cm/m2 LV Mass: 197.68 67-162/88-224 g LV Mass Index: 118.37 43-95/49-115 g/m2 LVOT Diam: 2.00 3.0+(-)1.3 cm 2D Systolic Function EF 4C: 55.30 >55% EF 2C: 47.00 >55% EF BiP: 51.70 >55% Mitral Valve MV Pk E: 0.63 MV PK A: 0.91 MV Decel Time: 247.00 E/A: 0.70 E'Lateral: 4.79 E'Medial: 4.57 E/E' Med: 13.80 E/E' Lat: 13.20 PHT: 72.00 MVA PHT: 3.06 Decel Furnas: 2.55 Aortic Valve AoV Pk Franco: 1.37 AoV Mn Franco: 0.87 AoV VTI: 0.31 AoV Pk Grad: 8.00 Aov Mn Grad: 4.00 LINDA Cont.VTI: 2.66 LVOT LVOT Pk Franco: 1.18 LVOT Mn Franco: 0.79 LVOT VTI: 0.26 LVOT Pk Grad: 6.00 LVOT Mn Grad: 3.00 LVOT Diam: 2.00 LVOT Area: 3.14 Diastolic Function MV Pk E: 0.63 MV Pk A: 0.91 E/A: 0.70 E'Medial: 4.57 E/E' Med: 13.80 E' Laterial: 4.79 E/E' Lat: 13.20 Right Ventricle TAPSE (mm): 23.00 TVS' Franco: 10.00 Tricuspid Valve TR Pk Franco: 2.35 TR Pk Grad: 22.00 RA Press: 3.00 RVSP: 25.00 Great Vessels Aorta Ao Root-2D: 2.90 2.0-3.7 cm Ao Asc: 3.60 2.1-3.4 cm Pulmonary Valve PV Pk Franco: 1.49 Peak PV Grad: 9.00 Updated in Other Vendor System with Status of Final Terrance Colon MD electronically signed on 04/06/2023 11:22:49 AM with status of Final
[2023-04-06 07:34] VITALS: BP 126/72; PULSE 76; TEMP 35.9; O2SAT 93
[2023-04-06] MEDS: Cholecalciferol (Vitamin D3) 25 MCG TABLET 50 MCG PO (08:19)
[2023-04-06] MEDS: Folic Acid 1 MG TABLET PO (08:19)
[2023-04-06] MEDS: Pravastatin Sodium 80 MG TABLET PO (08:20)
[2023-04-06] MEDS: Thiamine HCL 100 MG TABLET PO (08:20)
[2023-04-06] MEDS: Heparin Sodium,Porcine 5,000 UNIT/ML VIAL 5000 UNIT SUBCUT (08:20)
[2023-04-06] MEDS: lisinopriL 20 MG TABLET PO (08:20)
[2023-04-06] MEDS: Aspirin Enteric Coated 81 MG TABLET.DR PO (08:20)
[2023-04-06] MEDS: amLODIPine Besylate 5 MG TABLET PO (08:20)
[2023-04-06] MEDS: 0.9 % Sodium Chloride Flush 3 ML SYRINGE IVFLUSH (08:21)
--- NOTE | 2023-04-06 10:21 | MHC.SLORD ---
Speech Language Pathology Order Status: CREDIT CASHIER arrived to see pt for speech eval this morning, however pt was leaving for MRI at the time- CREDIT CASHIER will re-attempt this afternoon.
--- NOTE | 2023-04-06 10:26 | MHC.CM.PN ---
ANTIC PT WILL BE MEDICALLY CLEARED HOME NO SERVICES W/FAMILY FOR TRANSPORT
--- NOTE | 2023-04-06 10:59 | P.CNNE_ITS ---
History of Present Illness Data of Consult Service Date: 04/06/23 Primary Care Provider: Apolinar Mcelroy MD [facility] Reason for consult: Difficulty speaking 82 years old woman with hypertension came to hospital with an episode of difficulty speaking. She said that she was talking to her daughter when she could not come up with right words. There was no associated numbness or weakness or headache. It lasted for 15-20 minutes. Now she was feeling better. Review of Systems 2 Review of Systems: No recent cold or flu-like illness or significant stress is PMFSH Past Medical History Medical History Family hx of colon cancer requiring screening colonoscopy GERD (gastroesophageal reflux disease) Family History Family History Father No problems noted. Mother No problems noted. Sister No problems noted. Surgical History Surgical History History of esophagogastroduodenoscopy (EGD) Hx of colonoscopy Social History Social History Household Members: None Housing: House Alcohol intake: current Alcohol intake frequency: 0-2 drinks per day Alcohol type: beer and wine Patient Tobacco Use Status: Former Tobacco user Quit Date: 25-30 yrs ago Tobacco use type: Cigarette Advance Directives: No Advance Directives Information Provided: Yes Nutrition Risks: No Nutritional Risk service: No Current occupational status: retired Meds Allergies Allergy/AdvReac Type Severity Reaction Status Date / Time No Known Allergies Allergy Verified 04/02/23 13:20 [No Known Allergies*] Active Medications: Current Medications Acetaminophen (Acetaminophen 325 Mg Tablet) 650 mg PO Q6H PRN PRN Reason: Headache Amlodipine Besylate (Amlodipine Besylate 5 Mg Tablet) 5 mg PO DAILY [facility]; Protocol Last Admin: 04/06/23 08:20 Dose: 5 mg Aspirin (Aspirin Enteric Coated 81 Mg Tablet.) 81 mg PO DAILY [facility] Last Admin: 04/06/23 08:20 Dose: 81 mg Calcium Carbonate (Calcium Carbonate 500 Mg Tablet) 500 mg PO DAILY [facility] Last Admin: 04/06/23 08:19 Dose: 500 mg Folic Acid (Folic Acid 1 Mg Tablet) 1 mg PO DAILY [facility] Last Admin: 04/06/23 08:19 Dose: 1 mg Heparin Sodium (Porcine) (Heparin Sodium,Porcine 5,000 Unit/Ml Vial) 5,000 unit SUBCUT Q12H [facility] Last Admin: 04/06/23 08:20 Dose: 5,000 unit Levothyroxine Sodium (Levothyroxine Sodium 25 Mcg Tablet) 25 mcg PO DAILY@0600 [facility] Last Admin: 04/06/23 06:17 Dose: 25 mcg Lisinopril (Lisinopril 20 Mg Tablet) 20 mg PO DAILY [facility]; Protocol Last Admin: 04/06/23 08:20 Dose: 20 mg Melatonin (Melatonin 3 Mg Tablet) 6 mg PO BEDTIME PRN PRN Reason: Insomnia Omeprazole (Omeprazole 20 Mg Capsule.Dr) 20 mg PO DAILY@0630 [facility] Last Admin: 04/06/23 06:17 Dose: 20 mg Pravastatin Sodium (Pravastatin Sodium 80 Mg Tablet) 80 mg PO DAILY [facility] Last Admin: 04/06/23 08:20 Dose: 80 mg Sodium Chloride (0.9 % Sodium Chloride Flush 3 Ml Syringe) 3 ml IVFLUSH QSHIFT [facility] Last Admin: 04/06/23 08:21 Dose: 3 ml Thiamine HCl (Thiamine Hcl 100 Mg Tablet) 100 mg PO DAILY [facility] Last Admin: 04/06/23 08:20 Dose: 100 mg Vitamin D (Cholecalciferol (Vitamin D3) 25 Mcg Tablet) 50 mcg PO DAILY [facility] Last Admin: 04/06/23 08:19 Dose: 50 mcg Home Medications Medication Instructions Recorded Confirmed Last Taken Type cholecalciferol (vitamin D3) 50 50 mcg PO DAILY 02/06/20 04/05/23 04/04/23 History mcg (2,000 unit) capsule conjugated estrogens 0.625 mg/gram 0.625 mg vaginal MOWEFR@0900 02/06/20 04/05/23 04/03/23 History vaginal cream (Premarin) levothyroxine 25 mcg tablet 25 mcg PO DAILY@0600 02/06/20 04/05/23 04/04/23 History (Synthroid) lisinopril 10 mg tablet 20 mg PO DAILY 02/06/20 04/05/23 04/04/23 History lutein 40 mg capsule 40 mg PO DAILY 02/06/20 04/05/23 04/04/23 History pravastatin 80 mg tablet 80 mg PO DAILY 02/06/20 04/05/23 04/04/23 History tumeric 100 mg-jaguar 150 mg-olive 1 cap PO DAILY 04/11/21 04/05/23 04/04/23 History 50 mg-oreg 150 mg-caprylate capsule calcium carb-Ca gluc 500 mg 1 tab PO DAILY 04/05/23 04/05/23 04/04/23 History calcium-magnesium ox-Mg gluc 250 mg tablet (Calcium Magnesium) omeprazole 20 mg capsule,delayed 20 mg PO DAILY@0630 04/05/23 04/05/23 04/04/23 History release Physical Exam 2 Vital Signs: Vital Signs: Last Vital Signs Temp 96.7 F L 04/06/23 07:34 Pulse 76 04/06/23 07:34 Resp 20 04/06/23 04:00 BP 126/72 04/06/23 07:34 Pulse Ox 93 04/06/23 07:34 O2 Del Method Room Air 04/06/23 07:34 BMI result Body Mass Index 28.3 Neuro: Other: She is alert and awake with normal spontaneity of speech fluency comprehension and affect. Face is symmetrical. Visual judd are normal. There is no pronator drift. There is no sensory or visual extinction. Deep tendon reflexes are absent with flexor plantars. Speech is normal. Results Labs 04/05/23 05:51 04/05/23 05:51 Labs: Noncontrast MRI of brain revealed a punctate area of restricted diffusion and left mid thalamic area. Cbjl-nq-kwbcdvsi chronic microvascular ischemic changes were noted. CTA did not reveal any large vessel occlusion. Assessment and Plan (1) Thalamic infarct, acute: Status: Acute 82 years old woman with uncontrolled hypertension and a punctate area of left mid thalamic acute ischemic infarct resulting in difficulty speaking. This type of infarct may present with aphasia type of symptoms mainstay of management is blood pressure control and anti-platelet agent with statin. Better blood pressure management is recommended. She was advised to follow through with her primary care physician about that matter. Otherwise statin and baby aspirin daily are recommended Procedures Date of Service Date of Service: 04/06/23
[2023-04-06 11:25] VITALS: BP 120/64; PULSE 72; RESP 18; TEMP 36.2; O2SAT 96
--- NOTE | 2023-04-06 13:23 | PC.NURSE ---
Late Entry 04/04/2023: Patient arrived to ED via EMS after reporting difficulty word finding and numbness to right hand. According to provider notes, patient recently seen in ED for elevated blood pressure and had some changes made to her blood pressure medications. Due to the symptoms stated, a stroke alert was called. Upon assessment by the provider, NIH scale 0. Imaging was completed and medication prescribed by provider. With NIH 0, there was no concerns regarding swallow ability and patient tolerated PO aspirin. Plan is for admission to the hospital for further workup. Pt aware and agreeable to plan.
--- NOTE | 2023-04-06 13:26 | P.DS_ITS ---
DS: Providers Provider Date of Service: 04/06/23 Date of admission: 04/06/23 10:55 Date of discharge: 04/06/23 Primary care physician: Apolinar Mcelroy MD Consults: 04/05/23 10:50 Consult to Neurology Routine Consulting Provider: [facility] Reason for consultation: Tia Attending physician on discharge: Facundo Nguyen Discharging clinician: Facundo Nguyen DS: Diagnosis Discharge Diagnosis (1) Thalamic infarct, acute: Status: Acute DS: Summary Hospital Course Hospital Course: 82 years old woman with past medical history significant for hypothyroidism, hypertension and hyperlipidemia presents to the emergency department complaining of speech difficulty/slurred speech this evening around 18:00. She also complained of numbness to his left index finger and left-sided head pressure. She denied facial droop, gait difficulty, double vision, nausea or vomiting. She denies any weakness to her lower extremities. She denies fevers chills. She denies any cardiopulmonary, gastrointestinal genitourinary symptoms. She denied tobacco smoking or illicit drug use. She does drink alcohol daily - usually 2-3 cans of beer and wine. The last time she drank was yesterday. Last patient was scheduled for a bladder procedure and was suspended as her blood pressure was found to have 231/154. She was sent to the emergency department for evaluation and was started on amlodipine 5 mg p.o. daily (she only took 1 dose today). She also takes lisinopril for hypertension. In the ED, she was found to have hypertension. Her blood pressure is 159/90. The rest of the vital signs are normal. Blood workup is remarkable for a slight hyperkalemia of 5.4. Creatinine is normal. AST is elevated. ALT, alk phos and bilirubin are normal. She has no leukocytosis and hemoglobin is normal. Head CT scan without contrast and head/neck CTA are unremarkable. ECG showed normal sinus rhythm, PACs, LAD and no ischemic changes. ED tx: Aspirin 324 mg p.o. x1 Hospital course: Patient came with possible aphasia like symptoms-further workup including CTA negative, MRI-reviewed by Neurology, possible revealed a punctate area of restricted diffusion and left mid thalamic area(possible left mid thalamic acute ischemic infarct ), echo seems fine, patient's symptoms resolved to baseline. Patient was seen by Neurology: Recommended aspirin, statin, patient blood pressure is currently fine so continue home blood pressure medications. plan: Continue aspirin, statin, good blood pressure control outpatient. Follow-up with PCP outpatient. Above management discussed with the patient in detail length she understand and in agreement with the above plan, time spent 50 minute. Time Attestation Discharge coordination time: Greater than 30 minutes Quality: Safe Use of Opioids Does Pt have an Active Cancer Diagnosis on the Problem List?: No Quality: Stroke Does the patient have a stroke diagnosis?: No Physical Exam Vital Signs: Vital Signs: Last Vital Signs Temp 97.1 F 04/06/23 11:25 Pulse 72 04/06/23 11:25 Resp 18 04/06/23 11:25 BP 120/64 04/06/23 11:25 Pulse Ox 96 04/06/23 11:25 O2 Del Method Room Air 04/06/23 11:25 BMI result Body Mass Index 28.3 Appearance: Alert.? Oriented X3.? Eyes: Pupils equal, round and reactive to light.? Sclera nonicteric.? ENT: Pharynx normal.? Moist mucous membranes. cvs: rrr, [id number]. res: clear to auscultation ,no rhonchii or wheezing abd: no rebound or guarding ,nt, bs present. ext pulses present , no cyanosis . neuro: axo3 , nonfocal. DS: Data Data Completed and Pending Labs on day of discharge: Laboratory Results - last 24 hr 04/04/23 20:18 Whole Blood PT 13.5 Whole Blood INR 1.0 Imaging Chest x-ray: Radiologist's impression: ITS Impressions Head CT 04/04/23 20:26 IMPRESSION: 1. No evidence of acute intracranial hemorrhage or edematous territorial infarction. 2. 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 This critical result was discussed with Dr. Isaac Roy at 20:35 on 04/04/2023 and it was ascertained that the content and urgency of the report was understood at the time of direct communication. Head/Neck CTA 04/04/23 20:37 IMPRESSION: 1. No evidence of acute intracranial hemorrhage or edematous territorial infarction. 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 2. CTA of the head and neck without proximal occlusion or flow-limiting stenosis. 3. Heterogeneous cystic and solid lesions in the right thyroid lobe. Recommend further characterization with thyroid ultrasound. This critical result was discussed with Dr. Isaac Roy at 20:35 on 04/04/2023 and it was ascertained that the content and urgency of the report was understood at the time of direct communication. Brain MRI 04/06/23 10:37 IMPRESSION: No acute intracranial process. [id number]-go-[id number] chronic white matter microangiopathy and generalized brain parenchymal volume loss. echo: Conclusions: - The left ventricular systolic function is low normal. The calculated ejection fraction is 52% by biplane method. - No obvious valvular pathology seen on this study. Findings Left Ventricle Normal left ventricular cavity size. There is mildly increased left ventricular wall thickness. The left ventricular systolic function is low normal. The calculated ejection fraction is 52% by biplane method. There is no evidence of regional wall motion abnormalities. Diastolic function is normal for age. Right Ventricle Normal right ventricular cavity size and systolic function. Atria Both atria are normal in size. Aortic Valve There is a normal trileaflet aortic valve. There is mild calcification of the aortic valve. There is mild aortic valve stenosis. There is no aortic valve regurgitation. Mitral Valve The mitral valve appears normal. There is no mitral valve regurgitation. There is no mitral valve stenosis. Pulmonic Valve The pulmonic valve is likely normal. Tricuspid Valve Normal tricuspid valve structure. There is mild tricuspid valve regurgitation. There is no evidence of pulmonary hypertension. Great Vessels The asc aorta is normal in size. Venous The inferior vena cava is normal in size and collapses greater than 50% with inspiration. Pericardium/Pleural There is no evidence of pericardial effusion. Prior Study Comparison No prior study available for comparison. Recommendations, Care & Conclusions No obvious valvular pathology seen on this study. Discharge Plan Discharge Anticipated Discharge Date/Time: 04/06/23 13:17 Patient Disposition: Home, Self-Care Discharge Diagnosis: possible cva Referrals: Apolinar Mcelroy MD [Primary Care Provider] - 1 Week Discharge Medications: New aspirin 81 mg Tablet,Delayed Release (Dr/Ec) 81 mg PO DAILY Qty: 30 0RF pravastatin 80 mg Tablet 80 mg PO DAILY Qty: 30 0RF folic acid 1 mg Tablet 1 mg PO DAILY Qty: 30 0RF thiamine mononitrate (vit B1) 100 mg Tablet 100 mg PO DAILY Qty: 30 0RF Continued amlodipine 5 mg tablet 5 mg PO DAILY Qty: 14 0RF omeprazole 20 mg capsule,delayed release(DR/EC) 20 mg PO DAILY@0630 Calcium Magnesium 500 mg calcium -250 mg Tablet 1 tab PO DAILY levothyroxine [Synthroid] 25 mcg tablet 25 mcg PO DAILY@0600 pravastatin 80 mg tablet 80 mg PO DAILY lisinopril 10 mg tablet 20 mg PO DAILY cholecalciferol (vitamin D3) 50 mcg (2,000 unit) capsule 50 mcg PO DAILY lutein 40 mg capsule 40 mg PO DAILY Rx Instructions: administer with meals Premarin 0.625 mg/gram cream 0.625 mg vaginal MOWEFR@0900 Rx Instructions: off 5 days; repeat cycle xprcxdw-ejig-gqokz-oreg-capryl 100 mg-150 mg- 50 mg-150 mg capsule 1 cap PO DAILY Discharge Orders: Discharge Order (Routine); Ordered 04/06/23 Ordered By: Facundo Nguyen Diet: Advance to usual diet Activity on Discharge: As tolerated Stand Alone Forms: Patient Portal Discharge page Care Plan Goals: Patient came with possible aphasia like symptoms-further workup including CTA negative, MRI-reviewed by Neurology, possible revealed a punctate area of restricted diffusion and left mid thalamic area(possible left mid thalamic acute ischemic infarct ), echo seems fine, patient's symptoms resolved to baseline. Patient was seen by Neurology: Recommended aspirin, statin, patient blood pressure is currently fine so continue home blood pressure medications Above management discussed with the patient in detail length she understand and in agreement with the above plan, time spent 50 minute. Health Concerns: As above. Plan of Treatment: As above. Assessment: As above.
--- NOTE | 2023-04-06 13:32 | PC.NURSE ---
Pt awake, alert and oriented x 3. Skin warm and dry. Resp unlabored. Denies n/v. No complaints of pain. Neuros intact. No neuro deficits noted. Speech clear, concise. Met with patient and discussed stroke education. Discussed patient's visit with the neurologist and the results of her MRI. Pt anxious to be discharged home. All questions answered and no complaints offered. Pt reports that she has an appointment with her PCP on Thursday for follow up.
--- NOTE | 2023-04-06 14:33 | MHC.CM.PN ---
IMM 04/06/23 DELIVERED TO BEDSIDE, PT MEDICALLY CLEARED FOR DC HOME SELF CARE W/FAMILY FOR TRANSPORT
== END 2023-04-06 15:58 | disposition home or self-care (01) | DRG 66 ==
LOC: HO.ED 22:44 → HO.EDOVER 23:30 → HO.IMC 04-05 15:25
PROVIDERS: Physician Assistant; Admitting Provider Internal Medicine; Emergency Provider Internal Medicine; PCP Internal Medicine; Visit Provider Internal Medicine
DX: I63.9 Cerebral infarction, unspecified (principal); R47.01 Aphasia; I10 Essential (primary) hypertension; R29.700 NIHSS score 0; E87.5 Hyperkalemia; E03.9 Hypothyroidism, unspecified; E78.5 Hyperlipidemia, unspecified; Z87.891 Personal history of nicotine dependence; Z79.890 Hormone replacement therapy; Z79.899 Other long term (current) drug therapy
CPT/HCPCS: 36415; 70450; 70496; 70498; 70551; 80053; 80061; 82947; 83036; 83690; 84443; 84484; 85025; 85610; 85730; 92523; 93005; 93306; 97161; 97165; 99222; 99285; J1644; Q9967

== ENCOUNTER → 2023-04-04 20:12 | Outpatient (BNV) | payer MEDICARE, OTHER, SELFPAY | PROVIDERS: Admitting Provider Internal Medicine; Emergency Provider Internal Medicine; PCP Internal Medicine; Visit Provider Internal Medicine Cardiovascular Disease | DX: I49.3 Ventricular premature depolarization (principal) | CPT/HCPCS: 93010 ==

== ENCOUNTER → 2023-04-04 23:12 | Outpatient (BNV) | payer MEDICARE, OTHER, SELFPAY | PROVIDERS: Admitting Provider Internal Medicine; Emergency Provider Internal Medicine; PCP Internal Medicine; Visit Provider Internal Medicine | DX: G45.9 Transient cerebral ischemic attack, unspecified (principal); I10 Essential (primary) hypertension; E87.5 Hyperkalemia; F10.90 Alcohol use, unspecified, uncomplicated | CPT/HCPCS: 99222; 99231; 99239 ==

== ENCOUNTER → 2023-04-06 07:00 | Outpatient (BNV) | payer MEDICARE, OTHER, SELFPAY | PROVIDERS: Admitting Provider Internal Medicine; Emergency Provider Internal Medicine; PCP Internal Medicine; Visit Provider Internal Medicine | DX: I63.81 Other cerebral infarction due to occlusion or stenosis of small artery (principal) | CPT/HCPCS: 93306 ==

== ENCOUNTER → 2023-04-06 10:55 | Outpatient (BNV) | payer MEDICARE, OTHER, SELFPAY | PROVIDERS: Admitting Provider Internal Medicine; Emergency Provider Internal Medicine; PCP Internal Medicine; Visit Provider Psychiatry & Neurology Neurology | DX: I63.81 Other cerebral infarction due to occlusion or stenosis of small artery (principal) | CPT/HCPCS: 99222 ==

== ENCOUNTER 2023-04-14 07:48 | Outpatient (REF) | payer MEDICARE, OTHER, SELFPAY ==
--- NOTE | ~2023-04-14 | US_ITS ---
EXAMINATION: US THYROID CLINICAL INFORMATION: Right lobe thyroid nodule. COMPARISON: CTA head and neck 04/04/2023. TECHNIQUE: Linear transducer grayscale and color Doppler examination with attention to the region of the thyroid. FINDINGS: SIZE: Measurements of the thyroid lobes and nodules are given in sagittal, anteroposterior and transverse dimensions respectively. Right Thyroid Lobe: 5.9 x 3.3 x 3.8 cm, volume 38.7 mL. Parenchyma: The gland echotexture is heterogeneous. Thyroid vascularity is increased. Left Thyroid Lobe: 3.7 x 1.9 x 1.5 cm, volume 5.5 mL. Parenchyma: The gland echotexture is heterogeneous. Thyroid vascularity is increased. Isthmus: 0.5 cm in maximum AP dimension. Estimated total number of nodules greater than or equal to 1 cm: 4. 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 Location: Right superior. Size: 1.9 x 0.9 x 1.6 cm, volume 1.46 mL. Nodule characteristics: Composition: Solid (2). Echogenicity: Hyperechoic (1). Shape: Not taller than wide (0). Margins: Smooth (0). Echogenic Foci: None (0). ACR TI-RADS total points: 3 ACR TI-RADS category: 3 2. Location: Right mid. Size: 3.3 x 3.0 x 2.4 cm, volume 12.0 mL. Nodule characteristics: Composition: Solid/almost completely solid (2). Echogenicity: Isoechoic (1). Shape: Taller than wide (3). Margins: Smooth (0). Echogenic Foci: None (0). ACR TI-RADS total points: 6 ACR TI-RADS category: 4 3. Location: Right inferior. Size: 2.8 x 2.8 x 3.3 cm, volume 13.3 mL. Nodule characteristics: Composition: Solid/almost completely solid (2). Echogenicity: Isoechoic (1). Shape: Not taller than wide (0). Margins: Smooth (0). Echogenic Foci: None (0). ACR TI-RADS total points: 3 ACR TI-RADS category: 3 4. Location: Left mid. Size: 1.1 x 0.9 x 0.8 cm, volume 0.4 mL. Nodule characteristics: Composition: Solid/almost completely solid (2). Echogenicity: Hyperechoic (1). Shape: Taller than wide (3). Margins: Smooth (0). Echogenic Foci: None (0). ACR TI-RADS total points: 6 ACR TI-RADS category: 4 NODES: No lymphadenopathy is seen in the tissue surrounding the thyroid gland. US/US thyroid IMPRESSION: FNA is recommended of right inferior nodule and right mid nodule. Routine sonographic surveillance of left mid nodule and right superior nodule. ACR TI-RADS RECOMMENDATION REFERENCE: Ultrasound-guided fine-needle aspiration, followup ultrasound, no further follow up. * TR1 (0 point) and TR2 (2 points): No FNA or follow up. * TR3 (3 points): FNA if more than or equal to 2.5 cm in maximum dimension, followup ultrasound in 1, 3 and 5 years if 1.5 to 2.4 cm in maximum dimension. * TR4 (4-6 points): FNA if more than or equal to 1.5 cm in maximum dimension, followup ultrasound in 1, 2, 3 and 5 years if 1 to 1.4 cm in maximum dimension. * TR5 (more than or equal to 7 points): FNA if more than or equal to 1 cm in maximum dimension, followup ultrasound every year for 5 years if 0.5 to 0.9 cm in maximum dimension. * TR3, TR4 or TR5 nodules that are below the size threshold for followup receive no follow up.
== END 2023-04-14 07:49 | disposition home or self-care (01) ==
LOC: HO.US 07:48
PROVIDERS: PCP Internal Medicine; Visit Provider Internal Medicine
DX: E04.1 Nontoxic single thyroid nodule (principal)
CPT/HCPCS: 76536

== ENCOUNTER 2023-04-17 11:33 | Outpatient (REF) | payer MEDICARE, OTHER, SELFPAY ==
[2023-04-17 12:58] LABS: Appearance Urine Clear; Color Urine Yellow; Glucose Urine UA Negative (Negative); Leukocyte Esterase Urine Negative (Negative); Nitrite Urine Negative (Negative); Urine Blood Negative (Negative); Urine Ketones Negative (Negative); Urine Protein Negative (Neg-Trace)
== END 2023-04-17 11:34 | disposition home or self-care (01) ==
LOC: HO.LAB 11:33
PROVIDERS: PCP Internal Medicine; Visit Provider Urology
DX: N39.0 Urinary tract infection, site not specified (principal)
CPT/HCPCS: 81003; 87086

== ENCOUNTER 2023-06-29 10:14 | Outpatient (REF) | payer MEDICARE, OTHER, SELFPAY | END 2023-06-29 10:15 | disposition home or self-care (01) | LOC: HO.US 10:14 | PROVIDERS: PCP Internal Medicine; Visit Provider Internal Medicine | DX: Z13.89 Encounter for screening for other disorder (principal) ==

== ENCOUNTER 2023-08-03 08:23 | Outpatient (AMB) | payer MEDICARE, OTHER, SELFPAY ==
--- NOTE | 2023-08-03 08:28 | MHC.OFFVIS ---
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 Patient reports that her pain started in her ankle and has traveled up her leg to her knee. States an achy pain has been present for about 4 weeks. Her pain mostly comes at night at rest, stating her pain keeps her up at night. No numbness and tingling. Denies injury. Hx of ankle surgery about 20 years ago here at [facility]. Allergies No Known Allergies [No Known Allergies*] Allergy (Verified 08/03/23 08:48) HPI HPI SENIOR SUPPORT ENGINEER-Right leg/ankle pain: Details: 82-year-old female who presents to the office today for evaluation of right ankle and right knee pain for 4 weeks. She states she has achy pain that starts from the ankle and radiates up to her knee. She rates the pain as 7 on the scale of 0-10. Her pain is aggravated at night at rest where she is unable to sleep due to the pain. She denies any numbness or tingling. She has not had any previous injury. She takes Tylenol for her pain. She has a history of right ankle surgery about 20 years ago. [facility] Medical History (Updated 08/03/23 @ 09:21 by Mendel Martínez PA-C) Family hx of colon cancer requiring screening colonoscopy GERD (gastroesophageal reflux disease) Surgical History (Updated 08/03/23 @ 08:45 by Edwige Daniel [facility]) History of ankle surgery History of bladder surgery Hx of colonoscopy History of esophagogastroduodenoscopy (EGD) Family History Father No problems noted. Mother No problems noted. Sister No problems noted. Social History Household Members: None Housing: House Alcohol intake: current Alcohol intake frequency: 0-2 drinks per day Alcohol type: beer and wine Patient Tobacco Use Status: Former Tobacco user Quit Date: 25-30 yrs ago Tobacco use type: Cigarette service: No Current occupational status: retired Review of Systems Const All systems reviewed & are unremarkable except as noted in HPI and below Physical Exam Vital Signs: BMI result Body Mass Index 28.3 Const General: cooperative, healthy appearing, comfortable, no acute distress, well developed and alert Orientation/consciousness: patient oriented x3 HEENT Head: Yes normal to inspection, Yes normocephalic and Yes atraumatic Eyes General: appearance normal, both eyes and all related structures Resp Effort & Inspection: normal respiratory effort and able to speak in complete sentences Cardio Rate: regular rate Peripheral pulses: Peripheral pulses 2+ throughout GI Palpation (GI): Soft to palpation Skin Lesions: no lesions Rashes: no rashes Neuro General: patient oriented x3 Extrem Other: Right knee: Skin intact, no erythema or joint effusion. Tenderness along the medial and lateral joint line. Full ROM with crepitus. Negative Alicia?s. No ligamentous laxity. NVI. Results Reviewed Results Reviewed: Xrays were obtained in the office today and personally reviewed by me of the right knee show mild oa and pf oa Xrays were obtained in the office today and personally reviewed by me of the right ankle show intact hardware with post traumatic oa Assessment & Plan Assessment & Plan (1) Osteoarthritis of right knee: Code(s): M17.11 - Unilateral primary osteoarthritis, right knee Category: Medical Plan We discussed options which include PT, NSAIDs and injections. The patient will defer on the injection today and proceed with PT and NSAIDs. If symptoms persist, the patient will contact me for an injection, otherwise, PRN. Orders: Orders XR ankle RT min 3V Today M25.571 - Pain in right ankle and joints of right foot XR knee RT 3V Today M17.11 - Unilateral primary osteoarthritis, right knee PT Evaluation and Treatment Today M17.11 - Unilateral primary osteoarthritis, right knee Patient Instructions: Scribed for Mendel Martínez PA-C, by Chandana Mckeon medical technologist blood bank, on 07/22/2023 at 8:30 AM EST. IMendel PA-C, have personally reviewed and agree with the information entered by the scribe. Coding Level of Care Code New Pt Level 3 (39010) Diagnoses Osteoarthritis of right knee M17.11
[2023-08-03 08:39] VITALS: BMI 28.3
== END 2023-08-03 09:32 | disposition home or self-care (01) ==
PROVIDERS: PCP Internal Medicine; Visit Provider Physician Assistant
DX: M17.11 Unilateral primary osteoarthritis, right knee (principal)
CPT/HCPCS: 99203; 99213

== ENCOUNTER 2023-08-03 09:08 | Outpatient (REF) | payer MEDICARE, OTHER, SELFPAY ==
--- NOTE | ~2023-08-03 | XR_ITS ---
EXAMINATION: XR ANKLE, RIGHT XR KNEE, RIGHT XR KNEE, STANDING, BILATERAL CLINICAL INDICATION: Pain in right ankle and joints of foot, unilateral osteoarthritis right knee TECHNIQUE: AP standing view of bilateral knees as well as lateral and sunrise views of the right knee. 3 views of the right ankle. COMPARISON: Right ankle 01/25/2022. FINDINGS: RIGHT ANKLE: Redemonstration of lateral plate and screws transfixing a previously demonstrated fracture of the mid to distal fibula. Orthopedic hardware appears intact. 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 Bones are diffusely demineralized. Moderate osteoarthritic changes at the tibiotalar joint. Oval well-circumscribed focus in the soft tissues of the medial ankle. Small plantar calcaneal spur. Degenerative changes on limited views of the mid foot. Corticated ossicle along the inferior aspect of the medial malleolus redemonstrated. BILATERAL KNEES: Right: Bones are diffusely demineralized. No significant joint effusion. Faint chondrocalcinosis in medial lateral compartments. Small tricompartmental osteophytes. Mild narrowing of the medial compartment. Asymmetric narrowing with sclerosis along the lateral aspect of the patellofemoral compartment. AP standing view of the left knee: Small medial and lateral marginal osteophytes. Faint chondrocalcinosis in the medial and lateral compartments. Mild narrowing of the medial and lateral compartments. XR/XR ankle RT min 3V IMPRESSION: 1. Redemonstration of lateral plate and screws transfixing a previously demonstrated fracture of the mid to distal fibula. Orthopedic hardware appears intact. 2. 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 3. Moderate degenerative changes right tibiotalar joint. 4. Moderate degenerative changes bilateral knees.
--- NOTE | ~2023-08-03 | XR_ITS ---
EXAMINATION: XR ANKLE, RIGHT XR KNEE, RIGHT XR KNEE, STANDING, BILATERAL CLINICAL INDICATION: Pain in right ankle and joints of foot, unilateral osteoarthritis right knee TECHNIQUE: AP standing view of bilateral knees as well as lateral and sunrise views of the right knee. 3 views of the right ankle. COMPARISON: Right ankle 01/25/2022. FINDINGS: RIGHT ANKLE: Redemonstration of lateral plate and screws transfixing a previously demonstrated fracture of the mid to distal fibula. Orthopedic hardware appears intact. 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 Bones are diffusely demineralized. Moderate osteoarthritic changes at the tibiotalar joint. Oval well-circumscribed focus in the soft tissues of the medial ankle. Small plantar calcaneal spur. Degenerative changes on limited views of the mid foot. Corticated ossicle along the inferior aspect of the medial malleolus redemonstrated. BILATERAL KNEES: Right: Bones are diffusely demineralized. No significant joint effusion. Faint chondrocalcinosis in medial lateral compartments. Small tricompartmental osteophytes. Mild narrowing of the medial compartment. Asymmetric narrowing with sclerosis along the lateral aspect of the patellofemoral compartment. AP standing view of the left knee: Small medial and lateral marginal osteophytes. Faint chondrocalcinosis in the medial and lateral compartments. Mild narrowing of the medial and lateral compartments. XR/XR knee RT 3V IMPRESSION: 1. Redemonstration of lateral plate and screws transfixing a previously demonstrated fracture of the mid to distal fibula. Orthopedic hardware appears intact. 2. 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 3. Moderate degenerative changes right tibiotalar joint. 4. Moderate degenerative changes bilateral knees.
== END 2023-08-03 09:09 | disposition home or self-care (01) ==
LOC: HO.HOSX 09:08
PROVIDERS: Visit Provider Physician Assistant
DX: M17.11 Unilateral primary osteoarthritis, right knee (principal); M25.571 Pain in right ankle and joints of right foot
CPT/HCPCS: 73562; 73610; 99202

== ENCOUNTER 2023-09-22 14:00 | Outpatient (RCR) | payer MEDICARE, OTHER, SELFPAY ==
--- NOTE | 2023-08-20 15:11 | MHC.PT.EP ---
[facility] [place] Office [place] Office [place] Office [address] Bryson Ramirez [address] [phone] F: [phone] F: [phone] F: [phone] F: [phone] Physical Therapy Plan of Care Date of Evaluation: 08/20/23 Date of Surgery: Diagnosis: R knee OA Assessment: 82 y/o female referred to PT with R knee OA. S/s consistent with R ankle and knee OA with pes anserine bursitis. Of note, pt is an avid golfer, gardening, and enjoys swimming. Currently reports pain with sleeping, walking, stairs, and squatting. Of note, pt recently treated for stage one bladder CA (in remission) and has hx of R ankle ORIF. Examination shows decreased R knee and ankle AROM, decreased B quad/ ITB / gastroc length, decreased B LE strength, increased R knee edema, pes anserine TTP, and altered gait pattern. Pt is motivated for PT. Recommend PT 1x/week for 10 weeks (1x/week for 3 weeks then every other week for 3 more session) Frequency and Duration: The patient will be seen 1x/week for 10 weeks Short Term Goals: 5 weeks I with HEP Fur Drummer Goals: 10 weeks I with HEP and self management of sx Pt will be able to drive golf cart with pain < 3/10 Pt will be able to perform sit to stand 10x with pain < 3/10 and no UE support Treatment Plan: Modalities to reduce pain, spasms and effusion. Manual therapy to restore motion and function. Therapeutic exercise to improve strength and flexibility. Neuromuscular re-education for posture and balance. Therapeutic activities to return to functional activities of daily living. Electronically signed by: eber Carey PT Please sign and return to therapist. Thank you for your referral.
--- NOTE | 2023-09-22 14:51 | MHC.PT.DC ---
[facility] [place] Office [place] Office [place] Office [address] Bryson Ramirez [address] [phone] F: [phone] F: [phone] F: [phone] F: [phone] Physical Therapy Discharge Report Diagnosis: R knee OA Date of Surgery: Date of Evaluation: 08/20/23 Date of Discharge: 09/22/23 Treatments to Date: 4 Cancellations to Date: 0 No Shows to Date: 0 Discharge Status: Achieved Goals Improved Function Discharge Summary: Reviewed HEP and balance exercises with no corrections needed. Her gait pattern has improved with good symmetrical heel strike now and she reports pain is better. At this time, she has met her goals and d/c to I HEP. Electronically signed by: Zee Carey PT Please sign and return to therapist. Thank you for your referral.
== END 2023-09-22 14:52 | disposition home or self-care (01) ==
LOC: HO.PT 14:00
PROVIDERS: PCP Internal Medicine; Visit Provider Physician Assistant
DX: M17.11 Unilateral primary osteoarthritis, right knee (principal)
CPT/HCPCS: 97110; 97112; 97162

== ENCOUNTER 2024-07-07 10:25 | Outpatient (AMB) | payer MEDICARE, OTHER, SELFPAY ==
--- NOTE | 2024-07-07 10:37 | MHC.OFFVIS ---
Vital Signs 07/07/24 10:39 Height 5 ft 1 in Weight 154 lb BMI 29.1 BP 118/58 L Blood Pressure Location Lt brachial Position Sitting Pulse 73 Pulse Oximetry (%) 98 Oxygen Delivery Method Room Air Intake Visit Reasons: Gerd JM patient wanted to renew omeprazole Intake Note: Patient new consult for GERD/med refills. Last office visit was on 04/11/2021 with Azalea. Patient cc: acid reflux and constipation. Patient needed refill for Omeprazole 20 mg. 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 Accompanied by: Self / Same As Patient Allergies No Known Allergies [No Known Allergies*] Allergy (Verified 07/07/24 10:33) Medication List - Last Reconciled 07/07/24 by Olinda Oseguera CNP amlodipine 5 mg PO DAILY aspirin 81 mg PO DAILY calcium carb,gluc-mag gluc,ox 500 mg calcium- 250 mg (Calcium Magnesium) 1 tab PO DAILY cholecalciferol (vitamin D3) 50 mcg PO DAILY conjugated estrogens (Premarin) 0.625 mg vaginal MOWEFR@0900 folic acid 1 mg PO DAILY levothyroxine (Synthroid) 25 mcg PO DAILY@0600 lisinopril 20 mg PO DAILY lutein 40 mg PO DAILY omeprazole 20 mg PO DAILY pravastatin 80 mg PO DAILY pravastatin 80 mg PO DAILY thiamine mononitrate (vit B1) 100 mg PO DAILY vlyhnydt-vbsk-jbonp-oreg-capry 100 mg-150 mg- 50 mg-150 mg 1 cap PO DAILY HPI HPI Gerd JM patient wanted to renew omeprazole: Details: Patient is a 83-year-old female with PMH of hypertension, OA, osteopenia and GERD. Last visit with PATRICK Escobedo 04/13/2021 for 1 year follow-up for colonoscopy screening, declined colonoscopy after determining no family history of colon cancer. Pt is here today for follow-up on GERD, constipation and medication refills. She report GERD symptoms are well managed with omeprazole 20 mg daily. Endorses pyrosis if she misses a dose but reports that's an infrequent occurrence about 1-2x/year. Reports occasional constipation. Shares BMs every other day, type 4. Does experience type 1 few times/month . States symptoms relieved with OTC miralax. Shares symptoms are associated with known rectocele. She is connected with Urology and has declined to proceed with surgical interventions. Patient denies: systemic symptoms, n/v, appetite changes, regurgitation, unintentional wt loss, ab pain, dysphasia, cardiopulmonary symptoms, bladder changes or melena/hematochezia. Social hx: 2 beer/day denies recreational drug use former smoker, cessation 30+ year personal hx of CA -SCC, s/p excision Family hx: SCC Mother BCC father PFSH Medical History (Updated 07/07/24 @ 11:13 by Olinda Oseguera CNP) Constipation Family hx of colon cancer requiring screening colonoscopy GERD (gastroesophageal reflux disease) Surgical History History of ankle surgery History of bladder surgery Hx of colonoscopy History of esophagogastroduodenoscopy (EGD) Family History Father No problems noted. Mother No problems noted. Sister No problems noted. Social History Household Members: None Housing: House Alcohol intake: current Alcohol intake frequency: 0-2 drinks per day Alcohol type: beer and wine Patient Tobacco Use Status: Former Tobacco user Tobacco use type: Cigarette service: No Current occupational status: retired Review of Systems Const Reports as per HPI ENT Reports as per HPI Card Reports as per HPI Resp Reports as per HPI GI Reports as per HPI Reports as per HPI Physical Exam Vital Signs: Last Vital Signs Pulse 73 07/07/24 10:39 BP 118/58 L 07/07/24 10:39 Pulse Ox 98 07/07/24 10:39 Oxygen Delivery Method Room Air 07/07/24 10:39 BMI result Body Mass Index 29.1 Const General: healthy appearing, no acute distress and well developed Nutritional Appearance: well nourished Orientation/consciousness: patient oriented x3 HEENT Head: Yes normal to inspection, Yes normocephalic and Yes atraumatic Face and sinus: Yes normal facial exam Eyes General: appearance normal, both eyes and all related structures Neck Neck: Yes normal visual inspection Resp Effort & Inspection: normal respiratory effort, able to speak in complete sentences, no tracheal deviation and symmetric chest movement Auscultation: clear to auscultation bilaterally Cardio Jugular venous distension: no JVD Rate: regular rate Rhythm: regular rhythm Heart sounds: S1 normal heart sound present, S2 normal heart sound present, no gallops and no murmurs GI Inspection: Yes normal to inspection and No distended Palpation (GI): Soft to palpation, not firm, nontender and No hepatosplenomegaly present Auscultation: normal bowel sounds Neuro General: patient oriented x3 Gait exam (Neuro): Normal gait present Psych Appearance: grossly normal Mental Status: mental status grossly normal Speech and movement: Normal speech and movement present Affect: normal affect Attitude: cooperative Thought process: Normal thought process present Thought content: Normal thought content present Insight: Good insight present (Psych) Judgement: Good judgement present (Psych) Results Reviewed Results Reviewed: Laboratory Tests 01/21/21 Unknown Fecal Immunochem Test NEGATIVE FIT Diagnostic NEGATIVE Date of Service: 09/24/22 Procedure(s): XR DEXA axial skeleton EXAMINATION: BONE DENSITOMETRY CLINICAL INDICATION: Asymptomatic menopausal state. COMPARISON: Previous BD dated 10/06/2017 and baseline BD dated 04/10/2005. TECHNIQUE: Using a [employer] DXA System (software version: 13.1) manufactured by [employer], dual-energy x-ray absorptiometry was performed of the lumbar spine and left hip. The images are of good technical quality. Summary results are attached. FINDINGS: LEFT FEMUR, NECK: Current: BMD 0.705 g/cm2, Z-score -0.3, T-score -2.4, osteopenia. Prior: BMD 0.716 g/cm2. Baseline: BMD 0.726 g/cm2. LEFT FEMUR, TOTAL: Current: BMD 0.789 g/cm2, Z-score 0.2, T-score -1.7, osteopenia, 0.8% decrease from previous, 3.2% decrease from baseline (<5% change is not significant). Prior: BMD 0.795 g/cm2. Baseline: BMD 0.815 g/cm2. AP SPINE L1-L4: Current: BMD 1.051 g/cm2, Z-score 0.7, T-score -1.1, osteopenia, 1.6% increase from previous, 12.3% increase from baseline (<5% change is not significant). Prior: BMD 1.034 g/cm2. Baseline: BMD 0.936 g/cm2. IDENTIFIED RISK FACTORS: History of fracture (adult), low calcium intake, menopause. HISTORY OF FRACTURE: Other. MEDICATIONS: Vitamin D. MM/XR DEXA axial skeleton IMPRESSION: 1. DIAGNOSIS: Osteopenia based on the lowest T-score value of -2.4 in the femoral neck applying World Health Organization criteria. 2. 10-YEAR FRACTURE RISK PREDICTION, FRAX: Major osteoporotic fracture (clinical spine, forearm, hip or shoulder) 25.7%. Hip fracture 8.1%. 3. Treatment Recommendations: NOF guidelines recommend consideration for treatment in postmenopausal women and men age 50 and older presenting with the following: -A hip or vertebral (clinical or morphometric) fracture. -T-score less than or equal to -2.5 at the femoral neck or spine after appropriate evaluation to exclude secondary causes. -Low bone mass at the hip or spine and a 10-year fracture probability by FRAX of greater than or equal to 3% for hip fracture or greater than or equal to 20% for major osteoporotic fracture based on the [place] adapted WHO algorithm. 4. Other Recommendations: All treatment decisions require clinical judgment and consideration of individual patient factors, including patient preferences, comorbidities, previous drug use, risk factors not captured in the FRAX model (e.g. frailty, falls, vitamin D deficiency, increased bone turnover, interval significant decline in bone density) and possible under or overestimation of fracture risk by FRAX. Additional medical evaluation for secondary cause of low bone mineral density may be appropriate. Assessment & Plan Assessment & Plan (1) Osteopenia: Code(s): M85.80 - Other specified disorders of bone density and structure, unspecified site Category: Medical Qualifiers: Osteopenia location: femoral neck Laterality: left Qualified Code(s): M85.852 - Other specified disorders of bone density and structure, left thigh Plan: Last DEXA scan with evidence of osteopenia (see above). Risks reviewed with omeprazole. Encouraged she continue screening as indicated. (2) GERD (gastroesophageal reflux disease): Code(s): K21.9 - Gastro-esophageal reflux disease without esophagitis Category: Medical Qualifiers: Esophagitis presence: esophagitis presence not specified Qualified Code(s): K21.9 - Gastro-esophageal reflux disease without esophagitis Plan: Well managed with omeprazole 20 mg daily. Refill sent to preferred pharmacy. Education on GERD prevention-Advised against heavy meals. Encouraged small frequent meals VS large meals, remaining upright after meals x 2-3 hours, avoid spicy foods/caffeine/alcohol/known triggers and tight fitting clothes (3) Constipation: Code(s): K59.00 - Constipation, unspecified Category: Medical Qualifiers: Constipation type: unspecified constipation type Qualified Code(s): K59.00 - Constipation, unspecified Plan: Infrequent. Managed well with rvni-sxe-hykrkuc MiraLax. Previously declined colon cancer screening. Negative fit test as above. Screening no longer indicated given age and without alarm symptoms. Reinforced lifestyle modifications to promote regularity: -higher fiber diet -adequate hydration with water -150 minutes of moderate intensity exercise per week Plan Follow-up in 1 year or sooner as needed Time: I spent a total of 45 minutes on the date of encounter which includes: Preparing to see the patient (reviewed previous documentation, test results and medical history) Performing a medically appropriate exam and/or evaluation Ordering medications, tests, and procedures Documenting clinical information in the health record Medications: Refilled omeprazole 20 mg PO DAILY 90 caps 3RF Coding Level of Care Code New Pt New Pt Level 3 (15096) Patient Type New Diagnoses Osteopenia of neck of left femur M85.852 Osteopenia location: femoral neck Laterality: left Gastroesophageal reflux disease, unspecified whether esophagitis present K21.9 Esophagitis presence: esophagitis presence not specified Constipation, unspecified constipation type K59.00 Constipation type: unspecified constipation type
[2024-07-07 10:39] VITALS: BP 118/58; PULSE 73; O2SAT 98; BMI 29.1
--- OUTSIDE RECORDS SUMMARY | 2024-07-07 12:29 | XMS_ITS | Clinical Summary ---
Author Organization [address] Address [address] [place] [address] Phone Care Team Providers Care Pm Head Cook Name Role Phone Unavailable Primary Care Provider Unavailabl e Social History Tobacco Use Types Packs/Day Years Used Date Smoking Tobacco: Never Assessed Comments Unknown Sex and Gender Information Value Date Recorded Sex Assigned at Not on file Legal Sex Female 1:46 PM EST Gender Identity Not on file Sexual Orientation Not on file Plan of Treatment Health Maintenance Due Date Last Done Comments COVID-19 Vaccine (#1) 1945 DTaP,Tdap,and Td Vaccines (1 - Tdap) 1960 Pneumococcal Vaccine: 50+ Ye ars (1 of 2 - PCV) 1960 Zoster Vaccines (1 of 2) 1959 RSV Immunization Adult Patie nts (1 - 1-dose 75+ series) 2016 Depression Screening 02/11/2024 Falls Risk Assessment 02/11/2024 Medicare Annual Wellness Visit 02/11/2024 Osteoporosis Screening (Bone Density Screening) 02/11/2024 Social Influencers of Health Screening 02/11/2024 Influenza Vaccine (Season Ended) 2024 HIB Vaccines Aged Out No longer eligi ble based on patient's age to complete this topic HPV Vaccines Aged Out No longer eligi ble based on patient's age to complete this topic Hepatitis A Vaccines Aged Out No long er eligible based on patient's age to complete this topic Hepatitis B Vaccines Aged Out No long er eligible based on patient's age to complete this topic IPV Vaccines Aged Out No longer eligi ble based on patient's age to complete this topic MMR Vaccines Aged Out No longer eligi ble based on patient's age to complete this topic Meningococcal ACWY Vaccine Aged Out N o longer eligible based on patient's age to complete this topic Meningococcal B Vaccine Aged Out No l onger eligible based on patient's age to complete this topic RSV Immunization Patients Un ben 20 months Aged Out No longer eligible b ased on patient's age to complete this topic Varicella Vaccines Aged Out No longer eligible based on patient's age to complete this topic Insurance MEDICARE
--- OUTSIDE RECORDS SUMMARY | 2024-07-07 12:29 | XMS_ITS | Encounter Summary ---
Author Organization [facility] Address [address] [place] [address] Care Team Providers Care Lacrosse Player Name Role Phone Unavailable Primary Care Provider Unavailabl e Encounter Details Date Type Department Care Team (Late st Contact Info) Description 02/11/2024 Lab Requisition [facility] - Main Lab [address] [facility] [place] [address] Reddy Oliva MD [address] [facility] [address] [place] [phone] Malignant neoplasm of lateral wall of bladder (CMS/HCC V24, CMS/HCC V28) Social History Tobacco Use Types Packs/Day Years Used Date Smoking Tobacco: Never Assessed Comments Unknown Sex and Gender Information Value Date Recorded Sex Assigned at Not on file Legal Sex Female 1:46 PM EST Gender Identity Not on file Sexual Orientation Not on file documented as of this encounter Plan of Treatment Not on file documented as of this encounter Procedures Procedure Name Priority Date/Time Associated Diagnosis Comments AP OUTSIDE CONSULT Routine 02/04/2024 12 :00 AM EST Malignant neoplasm of lateral wall of bladder (CMS/HCC) documented in this encounter Results * Anatomic pathology outside consult (02/04/2024 12:00 AM EST) FISH Addendum Results of UroVysion fluorescence in situ hybridization (FISH) testing: CEP3: Normal CEP7: Normal CEP17: Normal LSI 9p21: Normal Interpretation: Normal profile Controls stained appropriately. Note: The results are intended as a screening device and should be interpreted in association with other clinical and pathological findings. 03/01/2024 9:04 AM EST [facility] Addendum electronically signed by Lowell Henderson MD on 03/01/2024 at 9:04 AM Final Diagnosis Urine, Voided: Negative for high grade urothelial carcinoma. Note: UroVysion testing to follow. 03/01/2024 9:04 AM [facility] Clinical Information [id number], malignant neoplasm of lateral wall of bladder, [Urine cyto/fish] 03/01/2024 9:04 AM [facility] Gross Description A. Urine, Voided, : [id number] recd 1 TP cyto 1 TP fish. 03/01/2024 9:04 AM [facility] Disclaimer Unless otherwise specified, all tissue is 10% NB formalin fixed and paraffin embedded. 03/01/2024 9:04 AM [facility] Tissue Urine specimen from urethra / Unknown 02/04/2024 02/11/2024 1:54 PM EST us Reddy Oliva MD LAB PATHOLOGY ORDERABLES Edited Result - Final [facility]) [facility] [address] [place] [address], documented in this encounter Visit Diagnoses Diagnosis Malignant neoplasm of lateral wall of bladder (CMS/HCC V24, CMS/HCC V28) Malignant neoplasm of lateral wall of urinary bladder documented in this encounter
== END 2024-07-07 11:16 | disposition home or self-care (01) ==
LOC: HO.HGI 10:26
PROVIDERS: PCP Internal Medicine; Visit Provider Nurse Practitioner Family
DX: M85.852 Other specified disorders of bone density and structure, left thigh (principal); K21.9 Gastro-esophageal reflux disease without esophagitis; K59.00 Constipation, unspecified
CPT/HCPCS: 99204

== ENCOUNTER → 2024-07-07 10:25 | Outpatient (BNVA) | payer MEDICARE, OTHER, SELFPAY | PROVIDERS: PCP Internal Medicine; Visit Provider Nurse Practitioner Family | DX: M85.852 Other specified disorders of bone density and structure, left thigh (principal); K21.9 Gastro-esophageal reflux disease without esophagitis; I10 Essential (primary) hypertension; K59.00 Constipation, unspecified; Z79.899 Other long term (current) drug therapy | CPT/HCPCS: 99202 ==

== ENCOUNTER 2024-10-18 11:04 | Outpatient (REF) | payer SELFPAY ==
--- OUTSIDE RECORDS SUMMARY | 2024-10-18 12:20 | XMS_ITS | Encounter Summary ---
Author Organization [facility] Address [address] [place] [address] Care Team Providers Care Service Shop Foreman Name Role Phone Physician, Pcp Unknown Primary Care Provider Keeley vailable Encounter Details Date Type Department Care Team (Late st Contact Info) Description 02/11/2024 Lab Requisition [facility] - Main Lab [address] [facility] [place] [address] Reddy Oliva MD [address] [facility] [address] [place] [phone] Malignant neoplasm of lateral wall of bladder [...] and pathological findings. 03/01/2024 9:04 AM EST [facility] ([facility]) [facility] Addendum electronically signed by Lowell Henderson MD on 03/01/2024 at 9:04 AM Final Diagnosis Urine, Voided: Negative for high grade urothelial carcinoma. Note: UroVysion testing to follow. 03/01/2024 9:04 AM [facility] Clinical Information [id number], malignant neoplasm of lateral wall of bladder, [Urine cyto/fish] 03/01/2024 9:04 AM [facility] Gross Description A. Urine, Voided, : [id number] recd 1 TP cyto 1 TP fish. 03/01/2024 9:04 AM [facility] Disclaimer Unless otherwise specified, all tissue is 10% NB formalin fixed and paraffin embedded. 03/01/2024 9:04 AM [facility] Tissue Urine specimen from urethra / Unknown 02/04/2024 02/11/2024 1:54 PM EST us Reddy Oliva MD LAB PATHOLOGY ORDERABLES Edited Result - Final [facility] [address] [place] [address], documented in this encounter Visit Diagnoses Diagnosis Malignant neoplasm of lateral wall of bladder (CMS/HCC V24, CMS/HCC V28) Malignant neoplasm of lateral wall of urinary bladder documented in this encounter Care Teams Service Shop Foreman Relationship Specialty Start Date End Date Physician, Pcp Unknown PCP - General 09/01/24 documented as of this encounter
--- OUTSIDE RECORDS SUMMARY | 2024-10-18 12:20 | XMS_ITS | Data Portability ---
Author Organization [facility] [employer], [facility] Address [address] [place] [address] Care Team Providers Care Wireless Communications Engineer Name Role Phone FIORELLA RUGGIERO Primary Care Provider [phone] FIORELLA RUGGIERO Referring Provider Assessment No assessment recorded. Plan of Treatment Reminders Order Date Submit Date Provider Last Modified By Organization Details Last Modified Time Details Appointments None recorded. Lab None recorded. Referral None recorded. Procedures None recorded. Surgeries None recorded. Imaging None recorded. Medication Orders amlodipine 5 mg tablet 2024 025 [facility]/Pharmacy #[id number], [id number] [place], [address], 11:22:35 lisinopril 20 mg tablet 2024 025 [facility]/Pharmacy #[id number], [id number] [place], [address], 11:22:35 pravastatin 80 mg tablet 2024 025 [facility]/Pharmacy #[id number], [id number] [place], [address], 11:22:35 Patient TargetsNo targets recorded. Patient Instructions Encounter Date Encounter Id Patient Instructions Last Modified By Organization Details Last Modified Time 08/16/2024 [id number] high cholesterol : care instructions [email or web address] Not available 08/16/2024 11:22:33 We discussed you r blood pressure and medication refills: - I have sent refills for the following medications to your [facility] pharmacy on [facility]: - Amlodipine 5 mg, take once daily. - Lisinopril 20 mg, take once daily. - Pravastatin, take as directed. - Continue taking your Synthroid as you have been. You mentioned you have enough of this medication. - You are also taking subm-awe-[id number] omeprazole, baby aspirin, and vitamins (B and D). Continue these as needed. You reported feeling well and have no current complaints. Please let me know if you need anything else or if your symptoms change. [email or web address] Not available 08/16/2024 11:23:51 Reason for Referral None Reported. Medical Equipment None Reported. Allergies No known drug allergies Medications Name Sig Start Date Stop Date Status Note LastModified by Organization Details LastModified Time doxycycline hyclate 100 mg capsule TAKE ONE PILL TWICE A DAY FOR 5 DAYS WITH FOOD AND WATER. 08/16 completed Not Available Not Available Not Available lisinopril 20 mg tablet Take 1 tablet every day by oral route. 2024 active Not Available Not Available Not Avai lable amlodipine 5 mg tablet Take 1 tablet every day by oral route. 2024 active Not Available Not Available Not Avai lable pravastatin 80 mg tablet Take 1 tablet every day by oral route. 2024 active Not Available Not Available Not Avai lable Synthroid 25 mcg tablet TAKE 1 TABLET ONCE DAILY active Not Available Not Available No t Available omeprazole 20 mg capsule,del ayed release TAKE 1 CAPSULE DAILY active Not Available Not Available No t Available Premarin 0.625 mg/gram vaginal cream INSERT VAGINALLY 1 GRAM 3 TIMES A WEEK WITH APPLICATO R DIRECTED active Not Available Not Available No t Available Vitals Date Recorded Body weight Body mass index (BMI) Body height Provider Name and Address Organization Details Last Updated DateTime 08/16/2024 49701.96 g 30.6 kg/m2 154.94 cm Irma Smith [place] - [facility], [facility] 08/16/2024 11:09:22 Social History None recorded. Functional Status None recorded. Mental Status None recorded. Family History Nothing Reported. Medical History No medical history recorded. Gynecological HistoryNo gynecological history recorded. Obstetrics History GPAL:G 0 P 0 0 0 0 Past Encounters Encounter ID Performer Location Encounter Start Date Encounter Closed Date Diagnosis/Indication Diagnosis SNOMED-CT Code Diagnosis ICD10 Code Diagnosis Note [id number] MD LISSETH Aguilar [facility] [address] [facility] [address] [place] [address] 08/16/2024 10:56:59 08/16/2024 12:13:30 Essential hypertension 48367881 I10 - Chronic, stable condition. - Current medication s: Amlodipine 5 mg once daily, Lisinopril 20 mg once daily. - No reported allergies to medication s. - Patient is feeling well and has no complaints . - Refills for Amlodipine 5 mg once daily and Lisinopril 20 mg once daily sent to [facility] on [facility]. - Patient advised to continue current regimen and monitor blood pressure regularly. Hyperlipidemia 67120451 E78.5 - Chronic, stable condition. - Current medication : Pravastati n. - Patient inquired about the necessity of continuing Pravastati n and was advised to continue the medication . - Refills for Pravastati n sent to [facility] on [facility]. - Patient advised to continue current regimen and follow up with primary care provider for routine lipid panel monitoring . Health Concerns Section Related Observation LastModified by Organization Detai ls LastModified Time None Recorded Concern Status LastModified by Organization Details LastModified Time None Recorded Advance Directives Directive None Recorded Payers Insurance Date Sequence Insurance Name Policy Number Policy Conley Covered Member ID Conley Member ID Guarantor Name 08/16/2024 1 [place] Jeny León [id number] Jeny León 08/16/2024 2 [facility] [id number] Jeny León [id number] Jeny León OBGyn Episode No OBEpisode recorded.
--- OUTSIDE RECORDS SUMMARY | 2024-10-18 12:20 | XMS_ITS | Patient Health Record ---
Author Organization [facility] Address [address] [place] [address] Care Team Providers Care Pathologist Assistant Name Role Phone Octavio Ulloa Unavailable [phone] Reason For Referral No Information Plan Of Treatment No Information
== END 2024-10-18 11:05 | disposition home or self-care (01) ==
LOC: HO.HAP 11:04
PROVIDERS: PCP Internal Medicine; Visit Provider Internal Medicine
DX: Z46.1 Encounter for fitting and adjustment of hearing aid (principal); H90.3 Sensorineural hearing loss, bilateral
CPT/HCPCS: V5267